=== PATIENT | female | born 1990 | race Hispanic/Latino ===

== ENCOUNTER 2018-03-07 11:58 | Emergency (ER) | payer SELFPAY ==
[2018-03-07] MEDS ORDERED: LIDOCAINE JELLY 2%- 5 ML TUBE ONE (13:04)
[2018-03-07] MEDS ORDERED: ONDANSETRON 4 MG/2 ML VIAL ONE (13:20)
[2018-03-07] MEDS ORDERED: MORPHINE 4 MG/ML SYR ONE (13:20)
[2018-03-07] MEDS ORDERED: NA CHLORIDE 0.9% 1,000 ML ONE (13:20)
[2018-03-07 13:25] LABS: Absolute Lymphocytes (CBC) 2.5 K/uL (0.7-4.9); Absolute Monocytes 0.8 K/uL (0.1-1.3); Absolute Neutrophil 7.6 K/uL (1.8-8.0); Basophils % 0.4 % (0-1.3); Eosinophils % 1.7 % (0-4.4); Hematocrit 36.7 % (36.0-45.0); Lymphocytes % 22.6 % (15.3-44.8); MCH 29.1 pg (27.0-35.0); MCV 87.3 fL (80-100); MPV 8.1 fL (7.6-11.3); Monocytes % 7.3 % (3.3-12.3)
[2018-03-07] MEDS ORDERED: BUPIVACAINE 0.5% PF 10 ML VIAL ONE (13:28)
[2018-03-07 13:32] LABS: Potassium 3.5 mEq/L (3.6-5.0)
[2018-03-07] MEDS ORDERED: LIDOCAINE 1% MPF 2 ML AMPULE ONE (14:12)
--- NOTE | 2018-03-07 14:57 | EDPHYS ---
Physician Documentation [facility] Name: Linsey Lauren Age: 27 yrs Sex: Female : 1990 Arrival Date: 03/07/2018 Time: 12:01 Bed 19 Private MD: None, None ED Physician Inocencio Meehan HPI: 03/07 13:10 This 27 yrs old Female presents to ER via Ambulatory with complaints of cp Abscess. 13:10 The patient presents with an abscess of the left breast, The patient presents with cp cellulitis of the left breast. Description: fluctuant. Onset: The symptoms/episode began/occurred gradually. Associated signs and symptoms: Pertinent negatives: fever. Severity of symptoms: in the emergency department the symptoms are unchanged, despite home interventions. Historical: - Allergies: 12:10 No Known Allergies; ph - PSHx: 12:10 Appendectomy; Cholecystectomy; ph - Immunization history:: Adult Immunizations unknown. - Social history:: Smoking status: Patient uses tobacco products, smokes one-half pack cigarettes per day. - Ebola Screening: : No symptoms or risks identified at this time. ROS: 13:15 Constitutional: Negative for body aches, chills, fever, poor PO intake. cp 13:15 Eyes: Negative for injury, pain, redness, and discharge. cp 13:15 ENT: Negative for drainage from ear(s), ear pain, sore throat, difficulty swallowing, difficulty handling secretions. 13:15 Cardiovascular: Negative for chest pain, palpitations. 13:15 Respiratory: Negative for cough, shortness of breath, wheezing. 13:15 Abdomen/GI: Negative for abdominal pain, nausea, vomiting, and diarrhea. 13:15 Back: Negative for pain at rest, pain with movement. 13:15 : Negative for urinary symptoms. 13:15 Skin: Positive for abscess, cellulitis, of the left breast. 13:15 All other systems are negative. Exam: 13:23 Constitutional: The patient appears in no acute distress, alert, awake, non-toxic, well cp developed, well nourished, uncomfortable. 13:23 Head/Face: Normocephalic, atraumatic. cp 13:23 Eyes: Periorbital structures: appear normal, Conjunctiva: normal, no exudate, no injection, Lids and lashes: appear normal, bilaterally. 13:23 ENT: External ear(s): are unremarkable, Nose: is normal, Mouth: is normal. 13:23 Chest/axilla: Breasts: abscess, that is moderate-sized, of the left breast, cellulitis, that is mild of the left breast, tenderness, that is moderate, of the left breast. 13:23 Cardiovascular: Rate: normal, Rhythm: regular. 13:23 Respiratory: the patient does not display signs of respiratory distress, Respirations: normal, no use of accessory muscles, no retractions, no splinting, no tachypnea, labored breathing, is not present, Breath sounds: are clear throughout, no decreased breath sounds, no stridor, no wheezing. 13:23 Abdomen/GI: Inspection: abdomen appears normal, Palpation: abdomen is soft and non-tender, in all quadrants, rebound tenderness, is not appreciated, voluntary guarding, is not appreciated, involuntary guarding, is not appreciated. 13:23 Back: pain, is absent, ROM is normal. 13:23 Neuro: Orientation: to person, place \T\ time. Mentation: is normal, Cerebellar function: is grossly normal, Motor: moves all fours, strength is normal, Sensation: no obvious gross deficits. Vital Signs: 12:09 BP 112 / 87; Pulse 71; Resp 18; Temp 98.7; Pulse Ox 97% on R/A; Weight 75.3 kg; Height ph 5 ft. 2 in. (157.48 cm); Pain 7/10; 13:00 BP 114 / 78; Pulse 68; Resp 16; Pulse Ox 100% ; hb 14:00 BP 116 / 75; Pulse 70; Resp 15; Pulse Ox 100% ; hb 15:00 BP 122 / 74; Pulse 70; Resp 16; Pulse Ox 100% on R/A; hb 12:09 Body Mass Index 30.36 (75.30 kg, 157.48 cm) ph Procedures: 14:45 I \T\ D: Incision and drainage was performed for an abscess of the left breast Prepped cp with Betadine, Anesthetized with 5ccs of 50/50 mixture 1% lidocaine w/o epi and 0.5% marcaine w/o epi. Incised with #11 blade. Drained moderate amount purulent fluid. Cultures obtained. Abscess cavity explored. Packed with iodoform gauze, Dressing: sterile 4x4 gauze, the patient tolerated the procedure well. MDM: 12:15 Patient medically screened. cp 13:30 Differential diagnosis: abscess, allergic reaction, cellulitis, mastoiditis. cp 14:55 Data reviewed: vital signs, nurses notes, lab test result(s), and as a result, I will cp discharge patient. 14:55 Counseling: I had a detailed discussion with the patient and/or guardian regarding: the cp historical points, exam findings, and any diagnostic results supporting the discharge/admit diagnosis, lab results, the need for outpatient follow up, a general surgeon, to return to the emergency department if symptoms worsen or persist or if there are any questions or concerns that arise at home. Response to treatment: the patient's symptoms have markedly improved after treatment. 03/07 13:03 Order name: CBC with Diff; Complete Time: 13:38 03/07 13:38 Interpretation: Normal except: WBC 11.1. 03/07 13:03 Order name: BMP; Complete Time: 13:38 03/07 13:40 Interpretation: Normal except: K 3.5; GFR 89. 03/07 13:03 Order name: Wound Culture 03/07 15:12 Order name: Urine Dipstick--Ancillary (enter results) 03/07 15:12 Order name: Urine --Ancillary (enter results) 03/07 13:03 Order name: IV; Complete Time: 13:29 03/07 13:03 Order name: I\T\D Setup; Complete Time: 13:29 03/07 13:03 Order name: Urine Dipstick-Ancillary (obtain specimen); Complete Time: 15:11 03/07 13:03 Order name: Urine Test (obtain specimen); Complete Time: 15:11 cp Administered Medications: 13:08 Drug: Lidocaine Gel 2 % 1 application Route: Mucous Membrane; hb 13:20 Drug: NS 0.9% 1000 ml Route: IV; Rate: 1 bolus; Site: right antecubital; hb 14:30 Follow up: Response: No change in condition; IV Status: Completed infusion hb 13:29 Drug: Zofran 4 mg Route: IVP; Site: right antecubital; hb 14:00 Follow up: Response: No adverse reaction; Nausea is decreased hb 13:29 Drug: morphine 2 mg Route: IVP; Site: right antecubital; hb 14:00 Follow up: Response: No adverse reaction; Pain is decreased hb 15:00 Drug: Clindamycin 600 mg Route: IVPB; Infused Over: 30 mins; Site: right antecubital; hb 15:31 Follow up: Response: No adverse reaction; IV Status: Completed infusion hb 15:00 Drug: Bactrim (160 mg-800 mg (DS) 1 tablet Route: PO; hb 15:31 Follow up: Response: No adverse reaction hb Disposition: 03/07/18 14:56 Discharged to Home. Impression: Left Breast Abscess and Cellulitis. - Condition is Stable. - Discharge Instructions: Abscess, Cellulitis. - Prescriptions for Clindamycin HCl 300 mg Oral Capsule - take 1 capsule by ORAL route every 6 hours for 10 days; 40 capsule. Bactrim DS 800- 160 mg Oral Tablet - take 1 tablet by ORAL route every 12 hours for 10 days; 20 tablet. Tylenol- Codeine #3 300-30 mg Oral Tablet - take 2 tablets by ORAL route every 6 hours As needed; 15 tablet. - Medication Reconciliation Form, Thank You Letter, Antibiotic Education, Prescription Opioid Use form. - Follow up: Manny Godinez MD; When: 1 - 2 days; Reason: Wound Recheck. - Problem is new. - Symptoms have improved. Addendum: 03/25/2018 10:55 Co-signature as Attending Physician, Inocencio Meehan MD. g s Signatures: Dispatcher [employer] [facility] Pepper Medina RN RN ph Page, Corey, PA PA Jayne Diego RN RN hb Starr, Gregory, MD MD Corrections: (The following items were deleted from the chart) 03/07 15:49 14:56 03/07/2018 14:56 Discharged to Home. Impression: Left Breast Abscess and hb Cellulitis. Condition is Stable. Forms are Medication Reconciliation Form, Thank You Letter, Antibiotic Education, Prescription Opioid Use. Follow up: Manny Godinez; When: 1 - 2 days; Reason: Wound Recheck. Problem is new. Symptoms have improved. cp
--- NOTE | 2018-03-07 14:57 | ER ---
Nurse's Notes [facility] Name: Linsey Lauren Age: 27 yrs Sex: Female : 1990 Arrival Date: 03/07/2018 Time: 12:01 Bed 19 Private MD: None, None Diagnosis: Left Breast Abscess and Cellulitis Presentation: 03/07 12:07 Presenting complaint: Patient states: " I think I have an abscess on my L breast right ph under my nipple. I tried to drain it but nothing came out." Pt reports pain in L breast, also reports N/V/D x 1 day, denies fever. Transition of care: patient was not received from another setting of care. Onset of symptoms was March 07, 2018. Risk Assessment: Do you want to hurt yourself or someone else? Patient reports no desire to harm self or others. Initial Sepsis Screen: Does the patient meet any 2 criteria? No. Patient's initial sepsis screen is negative. Does the patient have a suspected source of infection? Yes:. Care prior to arrival: None. 12:07 Method Of Arrival: Ambulatory ph 12:07 Acuity: HANH 4 ph Historical: - Allergies: 12:10 No Known Allergies; ph - PSHx: 12:10 Appendectomy; Cholecystectomy; ph - Immunization history:: Adult Immunizations unknown. - Social history:: Smoking status: Patient uses tobacco products, smokes one-half pack cigarettes per day. - Ebola Screening: : No symptoms or risks identified at this time. Screenin:30 Abuse screen: Denies threats or abuse. Denies injuries from another. Nutritional hb screening: No deficits noted. Tuberculosis screening: No symptoms or risk factors identified. Fall Risk None identified. Assessment: 12:30 General: Appears in no apparent distress. uncomfortable, Behavior is calm, cooperative. hb Pain: Pain currently is 9 out of 10 on a pain scale. Neuro: Level of Consciousness is awake, alert, obeys commands, Oriented to person, place, time, situation. Cardiovascular: Capillary refill < 3 seconds Patient's skin is warm and dry. Respiratory: Airway is patent Trachea midline Respiratory effort is even, unlabored, Respiratory pattern is regular, symmetrical, Breath sounds are clear bilaterally. GI: No signs and/or symptoms were reported involving the gastrointestinal system. : No signs and/or symptoms were reported regarding the genitourinary system. EENT: No signs and/or symptoms were reported regarding the EENT system. Derm: Skin is intact, is healthy with good turgor, Wound noted left nipple. Musculoskeletal: No signs and/or symptoms reported regarding the musculoskeletal system. 13:30 Reassessment: Patient appears in no apparent distress at this time. No changes from hb previously documented assessment. Patient and/or family updated on plan of care and expected duration. Pain level reassessed. Patient is alert, oriented x 3, equal unlabored respirations, skin warm/dry/pink. 14:30 Reassessment: Patient appears in no apparent distress at this time. No changes from hb previously documented assessment. Patient and/or family updated on plan of care and expected duration. Pain level reassessed. Patient is alert, oriented x 3, equal unlabored respirations, skin warm/dry/pink. 15:30 Reassessment: Patient appears in no apparent distress at this time. No changes from hb previously documented assessment. Patient and/or family updated on plan of care and expected duration. Pain level reassessed. Patient is alert, oriented x 3, equal unlabored respirations, skin warm/dry/pink. Vital Signs: 12:09 BP 112 / 87; Pulse 71; Resp 18; Temp 98.7; Pulse Ox 97% on R/A; Weight 75.3 kg; Height ph 5 ft. 2 in. (157.48 cm); Pain 7/10; 13:00 BP 114 / 78; Pulse 68; Resp 16; Pulse Ox 100% ; hb 14:00 BP 116 / 75; Pulse 70; Resp 15; Pulse Ox 100% ; hb 15:00 BP 122 / 74; Pulse 70; Resp 16; Pulse Ox 100% on R/A; hb 12:09 Body Mass Index 30.36 (75.30 kg, 157.48 cm) ph ED Course: 12:01 Patient arrived in ED. mr 12:01 None, None is Private Physician. mr 12:09 Triage completed. ph 12:11 Arm band placed on. ph 12:13 Nahum Dominguez PA is PHCP. cp 12:13 Inocencio Meehan MD is Attending Physician. cp 12:30 Patient has correct armband on for positive identification. Placed in gown. Bed in low hb position. Call light in reach. Side rails up X 1. 13:28 Jayne Alfred, RN is Primary Nurse. hb 14:55 Manny Godinez MD is Referral Physician. cp 15:39 No provider procedures requiring assistance completed. IV discontinued, intact, hb bleeding controlled, No redness/swelling at site. Pressure dressing applied. Administered Medications: 13:08 Drug: Lidocaine Gel 2 % 1 application Route: Mucous Membrane; hb 13:20 Drug: NS 0.9% 1000 ml Route: IV; Rate: 1 bolus; Site: right antecubital; hb 14:30 Follow up: Response: No change in condition; IV Status: Completed infusion hb 13:29 Drug: Zofran 4 mg Route: IVP; Site: right antecubital; hb 14:00 Follow up: Response: No adverse reaction; Nausea is decreased hb 13:29 Drug: morphine 2 mg Route: IVP; Site: right antecubital; hb 14:00 Follow up: Response: No adverse reaction; Pain is decreased hb 15:00 Drug: Clindamycin 600 mg Route: IVPB; Infused Over: 30 mins; Site: right antecubital; hb 15:31 Follow up: Response: No adverse reaction; IV Status: Completed infusion hb 15:00 Drug: Bactrim (160 mg-800 mg (DS) 1 tablet Route: PO; hb 15:31 Follow up: Response: No adverse reaction hb Outcome: 14:56 Discharge ordered by MD. cp 15:39 Discharged to home ambulatory. hb 15:39 Condition: stable 15:39 Discharge instructions given to patient, Instructed on discharge instructions, follow up and referral plans. medication usage, wound care, Demonstrated understanding of instructions, follow-up care, medications, wound care, Prescriptions given X 3. 15:49 Patient left the ED. hb Signatures: Martha Mckeon Pepper Medina, RN RN ph Nahum Dominguez, DOM PA cp Jayne Alfred, RN RN hb
[2018-03-07] MEDS ORDERED: SMZ./TMP. 800/160 MG TABLET ONE (15:03)
[2018-03-07] MEDS ORDERED: CLINDAMYCIN 900MG/D5W 900 MG/50 ML BAG IV ONE (15:03)
[2018-03-07 15:45] LABS: Urine Blood NEGATIVE (NEG); Urine Glucose NEGATIVE (NEG); Urine Protein NEGATIVE (NEG); Urine pH 7.5 (5.0-7.0)
[2018-03-07 15:59] VITALS: TEMP 98.7
[2018-03-07 16:00] VITALS: O2SAT 100
[2018-03-07 16:03] VITALS: BP 122/74
== END 2018-03-07 15:49 | disposition home or self-care (01) ==
LOC: ER 11:58
PROC: 0H9UXZZ (ICD-10-PCS; principal; 2018-03-07)
DX: N61.1 Abscess of the breast and nipple (principal); F17.210 Nicotine dependence, cigarettes, uncomplicated
CPT/HCPCS: 36415; 80048; 81003; 81025; 85025; 87070; 87205; 96361; 96365; 96375; 99283; J2001; J2405; J7030

== ENCOUNTER 2018-11-28 10:06 | Emergency (ER) | payer SELFPAY ==
[2018-11-28 11:04] LABS: Absolute Lymphocytes (CBC) 2.8 K/uL (0.7-4.9); Absolute Monocytes 0.4 K/uL (0.1-1.3); Absolute Neutrophil 4.2 K/uL (1.8-8.0); Basophils % 0.6 % (0-1.3); Eosinophils % 2.2 % (0-4.4); Hematocrit 39.7 % (36.0-45.0); Lymphocytes % 36.3 % (15.3-44.8); MPV 8.1 fL (7.6-11.3); Monocytes % 5.6 % (3.3-12.3); RBC Red Blood Cell Count 4.73 M/uL (3.86-4.86)
[2018-11-28] MEDS ORDERED: ONDANSETRON 4 MG/2 ML VIAL ONE (11:07)
[2018-11-28] MEDS ORDERED: KETOROLAC 30 MG/ML INJ ONE (11:07)
[2018-11-28] MEDS ORDERED: NA CHLORIDE 0.9% 1,000 ML ONE (11:08)
[2018-11-28 11:20] LABS: ALT/SGPT 17 U/L (12-78); AST/SGOT 8 U/L (15-37); Albumin 3.4 g/dL (3.4-5.0); Alkaline Phosphatase 69 U/L (45-117); BUN Blood Urea Nitrogen 14 mg/dL (7-18); Bicarbonate 26 mmol/L (21-32); Bilirubin Direct < 0.1 mg/dL (0-0.2); Bilirubin Total 0.2 mg/dL (0.2-1.0); Glucose Level 90 mg/dL (74-106); Lipase 135 U/L (73-393); Potassium 3.8 mmol/L (3.5-5.1); Protein, Total 7.3 g/dL (6.4-8.2); Sodium Level 138 mmol/L (136-145)
--- NOTE | 2018-11-28 11:58 | RAD REPORT ---
EXAM DESCRIPTION: CT - Abdomen Pelvis W Contrast - 11/28/2018 11:46 am CLINICAL HISTORY: Abdominal pain/generalized abdominal pain COMPARISON: 2016 TECHNIQUE: Computed axial tomography of the abdomen pelvis was obtained. 100 cc Isovue-300 was admin istered intravenously. Oral contrast was not requested which limits evaluation of bowel. All CT scans are performed using dose optimization technique as appropriate and may include automated exposure control or mA/KV adjustment according to patient size. FINDINGS: The liver, spleen, pancreas, adrenal and kidneys appear unremarkable. The gallbladder and appendix have been removed. There is no evidence of diverticulitis. A 25 millimeter right ovarian cyst without significant free fluid IMPRESSION: A 25 millimeter right ovarian cyst without significant free fluid
--- NOTE | 2018-11-28 12:08 | EDPHYS ---
Physician Documentation [facility] Name: Linsey Lauren Age: 28 yrs Sex: Female : 1990 Arrival Date: 11/28/2018 Time: 10:08 Bed 14 Private MD: None, None ED Physician Nahum Slaughter HPI: 11/28 12:06 This 28 yrs old Female presents to ER via Ambulatory with complaints of kb Abdominal Pain, Nausea. 12:06 The patient presents with abdominal pain that is diffuse. Onset: The symptoms/episode kb began/occurred 2 day(s) ago. The symptoms do not radiate. Associated signs and symptoms: Pertinent positives: nausea. The symptoms are described as constant. Modifying factors: The symptoms are alleviated by nothing, the symptoms are aggravated by nothing. Severity of pain: At its worst the pain was moderate in the emergency department the pain is unchanged. The patient has not experienced similar symptoms in the past. The patient has been recently seen by a physician: Natalie D\T\C on 11/02/18. 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 - Social history:: Smoking status: Patient uses tobacco products, denies chronic smoking, but will smoke occasionally. - Ebola Screening: : No symptoms or risks identified at this time. ROS: 12:05 Constitutional: Negative for fever, chills, and weight loss, Cardiovascular: Negative kb for chest pain, palpitations, and edema, Respiratory: Negative for shortness of breath, cough, wheezing, and pleuritic chest pain, Back: Negative for injury and pain, : Negative for injury, bleeding, discharge, and swelling, MS/Extremity: Negative for injury and deformity, Skin: Negative for injury, rash, and discoloration, Neuro: Negative for headache, weakness, numbness, tingling, and seizure. 12:05 Abdomen/GI: Positive for abdominal pain, nausea, Negative for vomiting, diarrhea, constipation, abdominal cramps, abdominal distension, anorexia. Exam: 12:05 Constitutional: This is a well developed, well nourished patient who is awake, alert, kb and in no acute distress. Head/Face: Normocephalic, atraumatic. Chest/axilla: Normal chest wall appearance and motion. Nontender with no deformity. No lesions are appreciated. Cardiovascular: Regular rate and rhythm with a normal S1 and S2. No gallops, murmurs, or rubs. Normal PMI, no JVD. No pulse deficits. Respiratory: Lungs have equal breath sounds bilaterally, clear to auscultation and percussion. No rales, rhonchi or wheezes noted. No increased work of breathing, no retractions or nasal flaring. Abdomen/GI: Soft, non-tender, with normal bowel sounds. No distension or tympany. No guarding or rebound. No evidence of tenderness throughout. Skin: Warm, dry with normal turgor. Normal color with no rashes, no lesions, and no evidence of cellulitis. MS/ Extremity: Pulses equal, no cyanosis. Neurovascular intact. Full, normal range of motion. Neuro: Awake and alert, GCS 15, oriented to person, place, time, and situation. Cranial nerves II-XII grossly intact. Motor strength 5/5 in all extremities. Sensory grossly intact. Cerebellar exam normal. Normal gait. Vital Signs: 10:17 BP 116 / 70; Pulse 65; Resp 18 S; Temp 97.9(TE); Pulse Ox 98% on R/A; Weight 82.55 kg aa5 (R); Height 5 ft. 2 in. (157.48 cm) (R); Pain 6/10; 12:31 BP 114 / 70; Pulse 64; Resp 16; Temp 98.4(O); Pulse Ox 99% on R/A; Pain 3/10; ls4 10:17 Body Mass Index 33.29 (82.55 kg, 157.48 cm) aa5 MDM: 10:18 Patient medically screened. kb 12:05 Data reviewed: vital signs, nurses notes. Data interpreted: Pulse oximetry: on room air kb is 98 %. Interpretation: normal. Counseling: I had a detailed discussion with the patient and/or guardian regarding: the historical points, exam findings, and any diagnostic results supporting the discharge/admit diagnosis, lab results, radiology results, the need for outpatient follow up, an OB/Gyne specialist, to return to the emergency department if symptoms worsen or persist or if there are any questions or concerns that arise at home. 11/28 10:32 Order name: Basic Metabolic Panel; Complete Time: 11:24 kb 11/28 10:32 Order name: CBC with Diff; Complete Time: 11:13 kb 11/28 10:32 Order name: Hepatic Function; Complete Time: 11:24 kb 11/28 10:32 Order name: Lipase; Complete Time: 11:24 kb 11/28 10:32 Order name: Urine Dipstick--Ancillary (enter results) kb 11/28 10:32 Order name: Urine --Ancillary (enter results) kb 11/28 10:32 Order name: IV Saline Lock; Complete Time: 11:07 kb 11/28 10:32 Order name: Labs collected and sent; Complete Time: 11:07 kb 11/28 11:26 Order name: CT Abd/Pelvis - W/Contrast; Complete Time: 12:00 kb Administered Medications: 11:06 Drug: NS 0.9% 1000 ml Route: IV; Rate: 1000 ml; Site: right antecubital; ls4 11:48 Follow up: IV Status: Completed infusion ls4 11:06 Drug: Zofran 4 mg Route: IVP; Site: right antecubital; ls4 11:27 Follow up: Response: No adverse reaction; Marked relief of symptoms ls4 11:06 Drug: TORadol 30 mg Route: IVP; Site: right antecubital; ls4 11:27 Follow up: Response: No adverse reaction; Marked relief of symptoms ls4 Disposition: 11/29 07:14 Co-signature as Attending Physician, Nahum Slaughter MD I agree with the assessment and yaneli plan of care. Disposition: 11/28/18 12:07 Discharged to Home. Impression: Other ovarian cysts. - Condition is Stable. - Discharge Instructions: Ovarian Cyst, [id number]. - Prescriptions for Zofran 4 mg Oral Tablet - take 1 tablet by ORAL route every 6 hours As needed; 20 tablet. Diclofenac Sodium 75 mg Oral Tablet, Delayed Release (E.C.) - take 1 tablet by ORAL route 2 times per day As needed; 30 tablet. - Medication Reconciliation Form, Thank You Letter, Antibiotic Education, Prescription Opioid Use, Work release form form. - Follow up: Emergency Department; When: As needed; Reason: Worsening of condition. Follow up: Private Physician; When: 2 - 3 days; Reason: Recheck today's complaints, Continuance of care, Re-evaluation by your physician. Signatures: Dispatcher [employer] Myah Rios, DAPHNE-Radha SERNA-Nahum Santiago MD MD cha Calderon, Audri, RN RN aa5 Carmen Dugan RN RN ls4 Corrections: (The following items were deleted from the chart) 11/28 12:33 12:07 11/28/2018 12:07 Discharged to Home. Impression: Other ovarian cysts. Condition ls4 is Stable. Forms are Medication Reconciliation Form, Thank You Letter, Antibiotic Education, Prescription Opioid Use. Follow up: Emergency Department; When: As needed; Reason: Worsening of condition. Follow up: Private Physician; When: 2 - 3 days; Reason: Recheck today's complaints, Continuance of care, Re-evaluation by your physician. kb
--- NOTE | 2018-11-28 12:08 | ER ---
Nurse's Notes [facility] Name: Linsey Lauren Age: 28 yrs Sex: Female : 1990 Arrival Date: 11/28/2018 Time: 10:08 Bed 14 Private MD: None, None Diagnosis: Other ovarian cysts Presentation: 11/28 10:16 Presenting complaint: Patient states: generalized abd pain that began 2 days ago. Pt aa5 also reports nausea. Pt states "I had an on November 02". Transition of care: patient was not received from another setting of care. Onset of symptoms was November 2018. Risk Assessment: Do you want to hurt yourself or someone else? Patient reports no desire to harm self or others. Initial Sepsis Screen: Does the patient meet any 2 criteria? No. Patient's initial sepsis screen is negative. Does the patient have a suspected source of infection? No. Patient's initial sepsis screen is negative. Care prior to arrival: None. 10:16 Method Of Arrival: Ambulatory aa5 10:16 Acuity: HANH 3 aa5 Triage Assessment: 10:25 General: Appears in no apparent distress. Behavior is calm, cooperative. Pain: ls4 Complains of pain in suprapubic area Pain currently is 7 out of 10 on a pain scale. 10:25 GI: Abdomen is round non-distended, Bowel sounds present X 4 quads. Reports lower ls4 abdominal pain. Musculoskeletal: No deficits noted. 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 - Social history:: Smoking status: Patient uses tobacco products, denies chronic smoking, but will smoke occasionally. - Ebola Screening: : No symptoms or risks identified at this time. Screenin:24 Abuse screen: Denies threats or abuse. Denies injuries from another. Nutritional ls4 screening: No deficits noted. Tuberculosis screening: No symptoms or risk factors identified. Fall Risk None identified. Assessment: 11:45 GI: Abdomen is round non-distended, Bowel sounds present X 4 quads. Abd is soft and non ls4 tender X 4 quads. Vital Signs: 10:17 BP 116 / 70; Pulse 65; Resp 18 S; Temp 97.9(TE); Pulse Ox 98% on R/A; Weight 82.55 kg aa5 (R); Height 5 ft. 2 in. (157.48 cm) (R); Pain 6/10; 12:31 BP 114 / 70; Pulse 64; Resp 16; Temp 98.4(O); Pulse Ox 99% on R/A; Pain 3/10; ls4 10:17 Body Mass Index 33.29 (82.55 kg, 157.48 cm) aa5 ED Course: 10:08 Patient arrived in ED. mr 10:08 None, None is Private Physician. mr 10:16 Triage completed. aa5 10:16 Arm band placed on. aa5 10:17 Myah Ellsworth, ANALILIA is PHCP. kb 10:17 Nahum Slaughter MD is Attending Physician. kb 10:20 Patient has correct armband on for positive identification. Bed in low position. Call ls4 light in reach. Side rails up X 1. 10:23 Carmen Dugan, RN is Primary Nurse. ls4 10:30 No provider procedures requiring assistance completed. Inserted saline lock: 20 gauge ls4 in right antecubital area, using aseptic technique. 10:30 Initial lab(s) drawn, by me, sent to lab. ls4 11:46 CT Abd/Pelvis - W/Contrast In Process Unspecified. EDMS 12:33 IV discontinued, intact, bleeding controlled, No redness/swelling at site. Pressure ls4 dressing applied. Administered Medications: 11:06 Drug: NS 0.9% 1000 ml Route: IV; Rate: 1000 ml; Site: right antecubital; ls4 11:48 Follow up: IV Status: Completed infusion ls4 11:06 Drug: Zofran 4 mg Route: IVP; Site: right antecubital; ls4 11:27 Follow up: Response: No adverse reaction; Marked relief of symptoms ls4 11:06 Drug: TORadol 30 mg Route: IVP; Site: right antecubital; ls4 11:27 Follow up: Response: No adverse reaction; Marked relief of symptoms ls4 Outcome: 12:07 Discharge ordered by . kb 12:32 Discharged to home ambulatory. ls4 12:32 Condition: stable 12:32 Discharge instructions given to patient, family, Instructed on discharge instructions, follow up and referral plans. safety practices, Demonstrated understanding of instructions, follow-up care, medications, Prescriptions given X 2. 12:33 Patient left the ED. ls4 Signatures: Dispatcher [employer] EDMS Myah Ellsworth, PRAKASHC DONOR RELATIONS OFFICER-Stacy Cartwright mr Loera, Rina, RN RN aa5 Carmen Dugan RN RN ls4
[2018-11-28 12:45] VITALS: BP 114/70; TEMP 98.4; O2SAT 99
[2018-11-28 14:20] LABS: Urine Blood TRACE (NEG); Urine Glucose NEGATIVE (NEG); Urine Protein NEGATIVE (NEG); Urine pH 5.5 (5.0-7.0)
== END 2018-11-28 12:33 | disposition home or self-care (01) ==
LOC: ER 10:06
DX: N83.291 Other ovarian cyst, right side (principal); R11.0 Nausea; M79.7 Fibromyalgia
CPT/HCPCS: 36415; 74177; 80048; 80076; 81003; 81025; 83690; 85025; J2405; J7030; Q9967

== ENCOUNTER 2019-03-20 21:33 | Emergency (ER) | payer BC, SELFPAY ==
[2019-03-20] MEDS ORDERED: MORPHINE 4 MG/ML SYR ONE (22:52)
[2019-03-20] MEDS ORDERED: MAGNE/ALUM HYDROXD 30 ML UCUP ONE (22:52)
[2019-03-20] MEDS ORDERED: ONDANSETRON 4 MG/2 ML VIAL ONE (22:52)
[2019-03-20] MEDS ORDERED: NA CHLORIDE 0.9% 1,000 ML ONE (22:53)
[2019-03-20] MEDS ORDERED: FAMOTIDINE 20 MG/2 ML VIAL IV ONE (22:53)
[2019-03-20] MEDS ORDERED: LIDOCAINE VISCOUS 2% SOLN 15 ML UDC ONE (22:53)
[2019-03-20 22:56] LABS: Urine Blood TRACE (NEG); Urine Glucose NEGATIVE (NEG); Urine Protein NEGATIVE (NEG)
[2019-03-20 23:00] LABS: Absolute Lymphocytes (CBC) 3.2 K/uL (0.7-4.9); Absolute Monocytes 0.8 K/uL (0.1-1.3); Absolute Neutrophil 5.5 K/uL (1.8-8.0); Basophils % 0.9 % (0-1.3); Eosinophils % 2.3 % (0-4.4); Hematocrit 33.6 % (36.0-45.0); Lymphocytes % 32.6 % (15.3-44.8); MPV 8.2 fL (7.6-11.3); Monocytes % 7.7 % (3.3-12.3); RBC Red Blood Cell Count 4.03 M/uL (3.86-4.86)
[2019-03-20 23:18] LABS: ALT/SGPT 46 U/L (12-78); AST/SGOT 18 U/L (15-37); Albumin 3.2 g/dL (3.4-5.0); Alkaline Phosphatase 65 U/L (45-117); BUN Blood Urea Nitrogen 9 mg/dL (7-18); Bicarbonate 27 mmol/L (21-32); Bilirubin Direct < 0.1 mg/dL (0-0.2); Bilirubin Total 0.2 mg/dL (0.2-1.0); Glucose Level 121 mg/dL (74-106); Lipase 210 U/L (73-393); Potassium 3.2 mmol/L (3.5-5.1); Protein, Total 6.7 g/dL (6.4-8.2); Sodium Level 140 mmol/L (136-145)
--- NOTE | 2019-03-21 00:16 | ER ---
Nurse's Notes [facility] Name: Linsey Lauren Age: 28 yrs Sex: Female : 1990 Arrival Date: 03/20/2019 Time: 21:41 Bed 13 Private MD: Diagnosis: Pain localized to upper abdomen Presentation: 03/20 21:41 Presenting complaint: Patient states: Left side chest wall pain worse with deep aj breathing. Patient ambulated with steady gait to triage and able to speak in full sentences with no difficulty. Transition of care: patient was not received from another setting of care. Onset of symptoms was March 18, 2019. Risk Assessment: Do you want to hurt yourself or someone else? Patient reports no desire to harm self or others. Initial Sepsis Screen: Does the patient have a suspected source of infection? No. Patient's initial sepsis screen is negative. Care prior to arrival: None. 21:41 Method Of Arrival: Ambulatory aj 21:41 Acuity: HANH 3 aj 21:54 Initial Sepsis Screen: Does the patient meet any 2 criteria? No. Patient's initial ea sepsis screen is negative. Triage Assessment: 21:43 General: Appears in no apparent distress. comfortable, Behavior is calm, cooperative, aj appropriate for age. Pain: Complains of pain in left lateral posterior chest, posterior aspect of left lateral abdomen and anterior aspect of left lateral abdomen. Neuro: Level of Consciousness is awake, alert, obeys commands, Oriented to person, place, time, situation, Appropriate for age. Cardiovascular: Capillary refill < 3 seconds in bilateral fingers Patient's skin is warm and dry. Respiratory: Airway is patent Respiratory effort is even, unlabored, Respiratory pattern is regular, symmetrical. Derm: Skin is intact, is healthy with good turgor, Skin is pink, warm \T\ dry. normal. 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 - Social history:: Smoking status: Patient/guardian denies using tobacco, Patient/guardian denies using alcohol, street drugs, The patient lives with family. - Ebola Screening: : No symptoms or risks identified at this time. - Family history:: not pertinent. Screenin:53 Abuse screen: Denies threats or abuse. Nutritional screening: No deficits noted. ea Tuberculosis screening: No symptoms or risk factors identified. Fall Risk None identified. Assessment: 21:52 General: Appears uncomfortable, Behavior is calm, cooperative, appropriate for age. ea Pain: Complains of pain in anterior aspect of left lateral abdomen and posterior aspect of left lateral abdomen. Neuro: Level of Consciousness is awake, alert, obeys commands, Oriented to person, place, time, situation. Cardiovascular: Patient's skin is warm and dry. Respiratory: Airway is patent Respiratory effort is even, unlabored, Respiratory pattern is regular, symmetrical. GI: Abdomen is non-distended. Derm: Skin is pink, warm \T\ dry. Musculoskeletal: Circulation, motion, and sensation intact. 22:50 Reassessment: Patient and/or family updated on plan of care and expected duration. Pain ea level reassessed. Patient is alert, oriented x 3, equal unlabored respirations, skin warm/dry/pink. 23:10 Reassessment: Patient and/or family updated on plan of care and expected duration. Pain ea level reassessed. Patient is alert, oriented x 3, equal unlabored respirations, skin warm/dry/pink. 03/21 00:28 Reassessment: Patient and/or family updated on plan of care and expected duration. Pain ea level reassessed. Patient is alert, oriented x 3, equal unlabored respirations, skin warm/dry/pink. Discharge instruction given to patient, verbalized the understanding of instruction. Pt left ED ambulatory accompanied by father. Pt tolerating well. Vital Signs: 03/20 21:43 BP 121 / 71; Pulse 81; Resp 19; Temp 97.9; Pulse Ox 98% on R/A; Weight 87.09 kg; Height aj 5 ft. 2 in. (157.48 cm); 22:22 BP 108 / 67; Pulse 73; Resp 18; Pulse Ox 100% ; ea 23:15 BP 122 / 86; Pulse 80; Resp 18; Pulse Ox 99% ; ea 03/21 00:15 BP 118 / 67; Pulse 77; Resp 18; Temp 98; Pulse Ox 99% ; ea 03/20 21:43 Body Mass Index 35.12 (87.09 kg, 157.48 cm) aj ED Course: 03/20 21:41 Patient arrived in ED. aj 21:43 Triage completed. aj 21:43 Arm band placed on left wrist. Patient placed in an exam room. aj 21:48 Talya Roblero, RN is Primary Nurse. ea 21:54 Patient has correct armband on for positive identification. Bed in low position. Call ea light in reach. Side rails up X 1. 22:16 Larry Gibbs MD is Attending Physician. ma2 22:40 Inserted saline lock: 20 gauge in right antecubital area, using aseptic technique. ea Blood collected. 22:53 CT completed. Patient tolerated procedure well. Patient moved to CT via wheelchair. nj Patient moved back from CT. 23:[address] In Process Unspecified. EDMS 03/21 00:27 No provider procedures requiring assistance completed. IV discontinued, intact, ea bleeding controlled, No redness/swelling at site. Pressure dressing applied. Administered Medications: 03/20 22:40 Drug: Pepcid 20 mg Route: IVP; Site: right antecubital; ea 03/21 00:00 Follow up: Response: No adverse reaction ea 03/20 22:45 Drug: Zofran 4 mg Route: IVP; Site: right antecubital; ea 03/21 00:00 Follow up: Response: No adverse reaction ea 00:00 Follow up: Response: No adverse reaction; Marked relief of symptoms ea 03/20 22:45 Drug: NS 0.9% 1000 ml Route: IV; Rate: 1 bolus; Site: right antecubital; ea 03/21 00:00 Follow up: Response: No adverse reaction; IV Status: Completed infusion; IV Intake: ea 1000ml 03/20 22:47 Drug: morphine 4 mg Route: IVP; Site: right antecubital; ea 03/21 00:00 Follow up: Response: No adverse reaction; Pain is decreased ea 03/20 23:12 Drug: GI Cocktail without - (Maalox Suspension 30 ml, Lidocaine Liquid 2 % 15 ea ml) Route: PO; 03/21 00:00 Follow up: Response: No adverse reaction ea Intake: 00:00 IV: 1000ml; Total: 1000ml. ea Outcome: 00:14 Discharge ordered by . evette 00:27 Discharged to home ambulatory. ea 00:27 Condition: improved 00:27 Discharge instructions given to patient, Instructed on discharge instructions, follow up and referral plans. medication usage, Demonstrated understanding of instructions, follow-up care, medications, Prescriptions given X 3. 00:31 Patient left the ED. celina Signatures: Dispatcher [employer] Julia Rollins RN RN aj Jordan, Nathan nj Antunez, Elena, RN RN ea Alzahri, Mohammad, MD MD ma2
--- NOTE | 2019-03-21 00:17 | EDPHYS ---
Physician Documentation [facility] Name: Linsey Lauren Age: 28 yrs Sex: Female : 1990 Arrival Date: 03/20/2019 Time: 21:41 Bed 13 Private MD: ED Physician Larry Gibbs HPI: 03/20 22:46 This 28 yrs old Female presents to ER via Ambulatory with complaints of Flank ma2 Pain. 22:46 The patient complains of pain in the left mid back. Onset: The symptoms/episode ma2 began/occurred gradually, 2 day(s) ago. Associated signs and symptoms: Pertinent positives: pain radiating to Pertinent negatives: fever, hematuria, nausea. Severity of pain: in the emergency department the pain is unchanged. The patient has experienced similar episodes in the past. 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 - Social history:: Smoking status: Patient/guardian denies using tobacco, Patient/guardian denies using alcohol, street drugs, The patient lives with family. - Ebola Screening: : No symptoms or risks identified at this time. - Family history:: not pertinent. ROS: 22:46 Constitutional: Negative for fever, chills, and weight loss. ma2 22:46 Abdomen/GI: Positive for abdominal pain, Negative for nausea and vomiting, constipation, abdominal distension. 22:46 All other systems are negative. Exam: 22:46 Constitutional: This is a well developed, well nourished patient who is awake, alert, ma2 and in no acute distress. Chest/axilla: Normal chest wall appearance and motion. Nontender with no deformity. No lesions are appreciated. Cardiovascular: Regular rate and rhythm with a normal S1 and S2. No gallops, murmurs, or rubs. Normal PMI, no JVD. No pulse deficits. Respiratory: Lungs have equal breath sounds bilaterally, clear to auscultation and percussion. No rales, rhonchi or wheezes noted. No increased work of breathing, no retractions or nasal flaring. Abdomen/GI: Soft, non-tender, with normal bowel sounds. No distension or tympany. No guarding or rebound. No evidence of tenderness throughout. Skin: Warm, dry with normal turgor. Normal color with no rashes, no lesions, and no evidence of cellulitis. MS/ Extremity: Pulses equal, no cyanosis. Neurovascular intact. Full, normal range of motion. Vital Signs: 21:43 BP 121 / 71; Pulse 81; Resp 19; Temp 97.9; Pulse Ox 98% on R/A; Weight 87.09 kg; Height aj 5 ft. 2 in. (157.48 cm); 22:22 BP 108 / 67; Pulse 73; Resp 18; Pulse Ox 100% ; ea 23:15 BP 122 / 86; Pulse 80; Resp 18; Pulse Ox 99% ; ea 03/21 00:15 BP 118 / 67; Pulse 77; Resp 18; Temp 98; Pulse Ox 99% ; ea 03/20 21:43 Body Mass Index 35.12 (87.09 kg, 157.48 cm) aj MDM: 03/20 22:17 Patient medically screened. ut2 22:46 Differential diagnosis: nephrolithiasis, pyelonephritis, UTI, diverticulitis. [facility] 03/21 00:13 Data reviewed: vital signs, nurses notes, EMS record, lab test result(s), radiologic ma2 studies. Counseling: I had a detailed discussion with the patient and/or guardian regarding: the historical points, exam findings, and any diagnostic results supporting the discharge/admit diagnosis, the presence of at least one elevated blood pressure reading (>120/80) during this emergency department visit, lab results, the need for outpatient follow up. Response to treatment: the patient's symptoms have resolved after treatment. 03/20 22:24 Order name: Urine Dipstick--Ancillary (enter results); Complete Time: 23:40 [facility] 03/20 22:24 Order name: Urine --Ancillary (enter results); Complete Time: 23:40 [facility] 03/20 22:33 Order name: Basic Metabolic Panel [facility] 03/20 22:33 Order name: CBC with Diff [facility] 03/20 22:33 Order name: Creatinine for Radiology ut2 03/20 22:33 Order name: Hepatic Function; Complete Time: 23:40 [facility] 03/20 22:33 Order name: Stone Protocol CT [facility] 03/20 22:33 Order name: Lipase; Complete Time: 23:40 [facility] 03/20 22:36 Order name: Basic Metabolic Panel; Complete Time: 23:40 EDMS 06 22:36 Order name: CBC with Automated Diff; Complete Time: 23:40 EDMS 03/20 22:36 Order name: Creatinine (Radiology Only); Complete Time: 23:40 EDMS 03/20 22:05 Order name: Urine Dipstick-Ancillary (obtain specimen); Complete Time: 22:18 ea 03/20 22:33 Order name: IV Saline Lock; Complete Time: 23:10 ma2 03/20 22:33 Order name: Labs collected and sent; Complete Time: 23:10 ma2 Administered Medications: 03/20 22:40 Drug: Pepcid 20 mg Route: IVP; Site: right antecubital; 03/21 00:00 Follow up: Response: No adverse reaction 03/20 22:45 Drug: Zofran 4 mg Route: IVP; Site: right antecubital; ea 03/21 00:00 Follow up: Response: No adverse reaction 00:00 Follow up: Response: No adverse reaction; Marked relief of symptoms 03/20 22:45 Drug: NS 0.9% 1000 ml Route: IV; Rate: 1 bolus; Site: right antecubital; ea 03/21 00:00 Follow up: Response: No adverse reaction; IV Status: Completed infusion; IV Intake: ea 1000ml 03/20 22:47 Drug: morphine 4 mg Route: IVP; Site: right antecubital; ea 03/21 00:00 Follow up: Response: No adverse reaction; Pain is decreased 03/20 23:12 Drug: GI Cocktail without - (Maalox Suspension 30 ml, Lidocaine Liquid 2 % 15 ea ml) Route: PO; 03/21 00:00 Follow up: Response: No adverse reaction Disposition: 03/21/19 00:14 Discharged to Home. Impression: Pain localized to upper abdomen. - Condition is Stable. - Discharge Instructions: Abdominal Pain, Adult. - Prescriptions for Tylenol- Codeine #3 300-30 mg Oral Tablet - take 2 tablet by ORAL route every 6 hours As needed; 30 tablet. Zofran 4 mg Oral Tablet - take 1 tablet by ORAL route every 12 hours As needed; 20 tablet. Pepcid 20 mg Oral Tablet - take 1 tablet by ORAL route once daily for 10 days; 10 tablet. - Work release form, Medication Reconciliation Form, Thank You Letter, Antibiotic Education, Prescription Opioid Use form. - Follow up: Private Physician; When: Tomorrow; Reason: If symptoms return. Signatures: Dispatcher [employer] Julia Rollins, RN Talya Rios RN Larry Lara ea, MD MD ma2 Corrections: (The following items were deleted from the chart) 00:31 00:14 03/21/2019 00:14 Discharged to Home. Impression: Pain localized to upper abdomen. ea Condition is Stable. Forms are Medication Reconciliation Form, Thank You Letter, Antibiotic Education, Prescription Opioid Use. Follow up: Private Physician; When: Tomorrow; Reason: If symptoms return. ma2
[2019-03-21 06:54] VITALS: O2SAT 99
[2019-03-21 06:55] VITALS: BP 118/67; TEMP 98
--- NOTE | 2019-03-21 11:35 | RAD REPORT ---
EXAM DESCRIPTION: CT - Stone Protocol - 03/21/2019 1:14 am CLINICAL HISTORY: 28 years Female ABD PAIN. Prior appendectomy, cholecystectomy. TECHNIQUE: Contiguous axial images obtained through the abdomen and pelvis without IV contrast. Co lorena and sagittal reformatted images provided. This CT exam was performed according to our departmental dose-optimization program, which includes on e or more of the following dose reduction techniques: automated exposure control, adjustment of the m A and/or kV according to patient size, and/or use of iterative reconstruction technique. COMPARISON: Comparison is made to the prior examination dated 11/28/2018. FINDINGS: There is slight right pelvic fullness with a 1 mm calculus at the right ureteropelvic junc tion on series 201 image 66, coronal image 58. No other renal, ureteral, or bladder calculi on either side. Normal left kidney and urinary bladder. There is no bowel inflammation, obstruction, free intraperitoneal air, or ascites. Prior appendectomy Stable chronic consolidation and bronchiectasis in the right middle lobe. Prior cholecystectomy without biliary dilatation. The unenhanced liver, pancreas, spleen, bilateral adrenal glands, uterus, and bilateral ovaries are n ormal. Previously seen right ovarian cyst has resolved. No acute osseous abnormality. IMPRESSION: Slight right pelvic fullness with a 1 mm calculus at the right ureteropelvic junction. No other acute findings in the abdomen or pelvis. Stable chronic consolidation and bronchiectasis in the right middle lobe. Electronically signed by: Jodi Vega MD 03/20/2019 11:19 PM CDT Due to temporary technical issues with the PACS/Fluency reporting system, reports are being signed by the in house radiologist as a courtesy to ensure prompt reporting. The interpreting radiologist is f ully responsible for the content of the report.
== END 2019-03-21 00:31 | disposition home or self-care (01) ==
LOC: ER 21:33
DX: R10.10 Upper abdominal pain, unspecified (principal)
CPT/HCPCS: 36415; 74176; 76377; 80048; 80076; 81003; 81025; 83690; 85025; 96361; 96374; 96375; 99284; J2405; J7030

== ENCOUNTER 2019-08-15 08:27 | Emergency (ER) | payer BC ==
--- NOTE | 2019-08-15 09:28 | EDPHYS ---
Physician Documentation [facility] Name: Linsey Lauren Age: 29 yrs Sex: Female : 1990 Arrival Date: 08/15/2019 Time: 08:30 Bed 19 Private MD: None, None ED Physician Jeramie Rea HPI: 08/15 09:26 This 29 yrs old Female presents to ER via Ambulatory with complaints of Flu kb Symptoms. 09:26 The patient or guardian reports cough, that is intermittent, described as mild, with no kb sputum, flu symptoms, low-grade fever, myalgias. Onset: The symptoms/episode began/occurred 5 day(s) ago. Severity of symptoms: At their worst the symptoms were mild, moderate, in the emergency department the symptoms are unchanged. Modifying factors: The symptoms are alleviated by nothing, the symptoms are aggravated by nothing. Associated signs and symptoms: Pertinent positives: fever, nausea, rhinorrhea, sore throat. The patient has not experienced similar symptoms in the past. The patient has not recently seen a physician. Pt reports she was on a cruise recently, got home on Aug 11 and has been sick since then. Reports others that she went with have similar symptoms. Denies any insect bites while in the [facility]. . Historical: - Allergies: 08:35 Morphine; ss - Home Meds: 08:35 None [Active]; ss - PMHx: 08:35 Fibromyalgia; ss - PSHx: 08:35 Appendectomy; Cholecystectomy; I\T\D; ss - Immunization history:: Adult Immunizations up to date. - Social history:: Smoking status: Patient/guardian denies using tobacco. - Ebola Screening: : Patient denies exposure to infectious person Patient denies travel to an Ebola-affected area in the 21 days before illness onset. ROS: 09:26 Neck: Negative for injury, pain, and swelling, Cardiovascular: Negative for chest pain, kb palpitations, and edema, Abdomen/GI: Negative for abdominal pain, nausea, vomiting, diarrhea, and constipation, Back: Negative for injury and pain, : Negative for injury, bleeding, discharge, and swelling, MS/Extremity: Negative for injury and deformity, Skin: Negative for injury, rash, and discoloration, Neuro: Negative for headache, weakness, numbness, tingling, and seizure. 09:26 Constitutional: Positive for body aches, chills, fatigue, fever, malaise. 09:26 ENT: Positive for rhinorrhea, sinus congestion, sore throat. 09:26 Respiratory: Positive for cough, Negative for dyspnea on exertion, hemoptysis, orthopnea, pleurisy, shortness of breath, sputum production, wheezing. Exam: 09:26 Constitutional: This is a well developed, well nourished patient who is awake, alert, kb and in no acute distress. Head/Face: Normocephalic, atraumatic. Neck: Trachea midline, no thyromegaly or masses palpated, and no cervical lymphadenopathy. Supple, full range of motion without nuchal rigidity, or vertebral point tenderness. No Meningismus. Chest/axilla: Normal chest wall appearance and motion. Nontender with no deformity. No lesions are appreciated. Cardiovascular: Regular rate and rhythm with a normal S1 and S2. No gallops, murmurs, or rubs. Normal PMI, no JVD. No pulse deficits. Respiratory: Lungs have equal breath sounds bilaterally, clear to auscultation and percussion. No rales, rhonchi or wheezes noted. No increased work of breathing, no retractions or nasal flaring. Abdomen/GI: Soft, non-tender, with normal bowel sounds. No distension or tympany. No guarding or rebound. No evidence of tenderness throughout. Skin: Warm, dry with normal turgor. Normal color with no rashes, no lesions, and no evidence of cellulitis. MS/ Extremity: Pulses equal, no cyanosis. Neurovascular intact. Full, normal range of motion. Neuro: Awake and alert, GCS 15, oriented to person, place, time, and situation. Cranial nerves II-XII grossly intact. Motor strength 5/5 in all extremities. Sensory grossly intact. Cerebellar exam normal. Normal gait. 09:26 ENT: External ear(s): are unremarkable, Ear canal(s): are normal, TM's: are normal, Nose: is normal, Mouth: is normal, Posterior pharynx: Airway: normal, no evidence of obstruction, Tonsils: are normal in appearance, Uvula: normal, midline, erythema, that is moderate. Vital Signs: 08:35 BP 124 / 88; Pulse 89; Resp 16; Temp 98.4(TE); Pulse Ox 98% on R/A; Weight 87.09 kg; ss Height 5 ft. 2 in. (157.48 cm); Pain 8/10; 08:35 Body Mass Index 35.12 (87.09 kg, 157.48 cm) ss MDM: 09:01 Patient medically screened. kb 09:26 Data reviewed: vital signs, nurses notes. Data interpreted: Pulse oximetry: on room air kb is 98 %. Interpretation: normal. Counseling: I had a detailed discussion with the patient and/or guardian regarding: the historical points, exam findings, and any diagnostic results supporting the discharge/admit diagnosis, lab results, the need for outpatient follow up, a family practitioner, to return to the emergency department if symptoms worsen or persist or if there are any questions or concerns that arise at home. 08/15 08:34 Order name: Flu; Complete Time: 09:19 kb 08/15 08:34 Order name: Strep; Complete Time: 09:19 kb 08/15 09:16 Order name: Throat Culture EDMS Administered Medications: No medications were administered Disposition: 08/16 07:14 Co-signature as Attending Physician, Jeramie Rea MD I agree with the assessment and kdr plan of care. Disposition: 08/15/19 09:25 Discharged to Home. Impression: Acute upper respiratory infection, unspecified. - Condition is Stable. - Discharge Instructions: Upper Respiratory Infection, Adult, Twip-el-Grol, Viral Respiratory Infection, [id number]. - Medication Reconciliation Form, Thank You Letter, Antibiotic Education, Prescription Opioid Use form. - Follow up: Emergency Department; When: As needed; Reason: Worsening of condition. Follow up: Private Physician; When: 2 - 3 days; Reason: Recheck today's complaints, Continuance of care, Re-evaluation by your physician. Signatures: Dispatcher [employer] EDMS Myah Ellsworth, Jeramie Escobar MD MD [facility] Ricarda Jansen RN RN ss Jayne Alfred RN RN hb Corrections: (The following items were deleted from the chart) 08/15 09:30 09:25 08/15/2019 09:25 Discharged to Home. Impression: Acute upper respiratory hb infection, unspecified. Condition is Stable. Forms are Medication Reconciliation Form, Thank You Letter, Antibiotic Education, Prescription Opioid Use. Follow up: Emergency Department; When: As needed; Reason: Worsening of condition. Follow up: Private Physician; When: 2 - 3 days; Reason: Recheck today's complaints, Continuance of care, Re-evaluation by your physician. kb
--- NOTE | 2019-08-15 09:28 | ER ---
Nurse's Notes [facility] Name: Linsey Lauren Age: 29 yrs Sex: Female : 1990 Arrival Date: 08/15/2019 Time: 08:30 Bed 19 Private MD: None, None Diagnosis: Acute upper respiratory infection, unspecified Presentation: 08/15 08:32 Presenting complaint: Patient states: Neck stiffness, chills, sore throat, painful ss cough, body aches and bilateral ear pain that began 3 days ago. Transition of care: patient was not received from another setting of care. Onset of symptoms was August 12, 2019. Risk Assessment: Do you want to hurt yourself or someone else? Patient reports no desire to harm self or others. Initial Sepsis Screen: Does the patient meet any 2 criteria? No. Patient's initial sepsis screen is negative. Does the patient have a suspected source of infection? No. Patient's initial sepsis screen is negative. Care prior to arrival: None. 08:32 Method Of Arrival: Ambulatory ss 08:32 Acuity: HANH 4 ss Historical: - Allergies: 08:35 Morphine; ss - Home Meds: 08:35 None [Active]; ss - PMHx: 08:35 Fibromyalgia; ss - PSHx: 08:35 Appendectomy; Cholecystectomy; I\T\D; ss - Immunization history:: Adult Immunizations up to date. - Social history:: Smoking status: Patient/guardian denies using tobacco. - Ebola Screening: : Patient denies exposure to infectious person Patient denies travel to an Ebola-affected area in the 21 days before illness onset. Screenin:09 Abuse screen: Denies threats or abuse. Denies injuries from another. Nutritional hb screening: No deficits noted. Tuberculosis screening: No symptoms or risk factors identified. Fall Risk None identified. Assessment: 09:09 General: Appears in no apparent distress. Behavior is calm, cooperative. Pain: Pain hb currently is 8 out of 10 on a pain scale. Neuro: Level of Consciousness is awake, alert, obeys commands, Oriented to person, place, time, situation. Cardiovascular: Capillary refill < 3 seconds Patient's skin is warm and dry. Respiratory: Airway is patent Respiratory effort is even, unlabored, Respiratory pattern is regular, symmetrical, Breath sounds are clear bilaterally. GI: Reports nausea. : No signs and/or symptoms were reported regarding the genitourinary system. EENT: Reports sore throat, bilateral ear pain. Derm: Skin is pink, warm \T\ dry. Musculoskeletal: Reports pain all over. Vital Signs: 08:35 BP 124 / 88; Pulse 89; Resp 16; Temp 98.4(TE); Pulse Ox 98% on R/A; Weight 87.09 kg; Height 5 ft. 2 in. (157.48 cm); Pain 8/10; 08:35 Body Mass Index 35.12 (87.09 kg, 157.48 cm) ED Course: 08:30 Patient arrived in ED. mr 08:31 None, None is Private Physician. mr 08:33 Triage completed. ss 08:34 Myah Ellsworth FNP-C [facility]. kb 08:34 Jeramie Rea MD is Attending Physician. kb 08:35 Arm band placed on right wrist. ss 09:09 Jayne Alfred, RN is Primary Nurse. hb 09:09 Patient has correct armband on for positive identification. Placed in gown. Bed in low hb position. Call light in reach. Side rails up X 1. 09:30 No provider procedures requiring assistance completed. Patient did not have IV access hb during this emergency room visit. Administered Medications: No medications were administered Outcome: 09:25 Discharge ordered by . kb 09:30 Discharged to home ambulatory. hb 09:30 Condition: stable 09:30 Discharge instructions given to patient, Instructed on discharge instructions, follow up and referral plans. medication usage, Demonstrated understanding of instructions, follow-up care, medications. 09:30 Patient left the ED. hb Signatures: Myah Ellsworth FNP-C FNP-Ckb Stacy MckeonRicarda, RN RN Jayne Alfred, RN RN hb
[2019-08-15 09:35] VITALS: BP 124/88; TEMP 98.4; O2SAT 98
== END 2019-08-15 09:30 | disposition home or self-care (01) ==
LOC: ER 08:27
DX: J06.9 Acute upper respiratory infection, unspecified (principal); Z88.5 Allergy status to narcotic agent
CPT/HCPCS: 87070; 87081; 87804; 99281

== ENCOUNTER 2020-03-07 17:13 | Emergency (ER) | payer OTHER ==
[2020-03-07] MEDS ORDERED: METHYLPREDNISOLONE 125 MG INJ ONE (18:41)
[2020-03-07] MEDS ORDERED: KETOROLAC 30 MG/ML INJ ONE (18:41)
[2020-03-07 18:58] LABS: Urine Blood 1+ (NEG); Urine Glucose NEGATIVE (NEG); Urine Protein NEGATIVE (NEG); Urine Specific Gravity >1.030 (1.005-1.030)
--- NOTE | 2020-03-07 19:08 | RAD REPORT ---
EXAM DESCRIPTION: CT - Soft Tissue Neck W/Contr - 03/07/2020 6:58 pm CLINICAL HISTORY: neck pain - Left COMPARISON: SOFT TISSUE NECK W CONTRAST dated 08/16/2013 TECHNIQUE: During dynamic enhancement using 100 milliliters nonionic IV contrast, axial 5 millimeter thick images of the neck were obtained. All CT scans are performed using dose optimization technique as appropriate and may include automated exposure control or mA/KV adjustment according to patient size. FINDINGS: Intracranial portion the examination is unremarkable. No globe or orbital content abnormal ity. Mastoid air cells are underpneumatized. No acute mastoid or middle ear finding. Extensive paranasal sinus mucosal thickening changes are present. Postsurgical changes are present in each medial maxillary sinus wall. No pharyngeal mucosal mass or asymmetry identifiable. Parapharyngeal fat is normal. No tonsil or tong ue base abnormality. Soft palate is normal range. No epiglottis abnormality. Vocal cord and laryngeal structures normal range as well. A few small nonspecific cervical lymph nodes are present. This is a symmetric pattern and similar to the 2013 study. The parotid, submandibular and thyroid gland tissue show no abnormalities. No edema or stranding in t he subcutaneous fatty tissues. No vascular abnormality. No cervical spine acute finding. IMPRESSION: Contrast CT soft tissue neck examination shows no mass, lymphadenopathy or worrisome fin ding. Patient has extensive paranasal sinus disease without air-fluid level. This is probably not related t o clinical presentation.
[2020-03-07 20:38] VITALS: BP 123/94; O2SAT 99
[2020-03-07 20:39] VITALS: TEMP 98
--- NOTE | 2020-03-11 16:15 | ER ---
Nurse's Notes [facility] Name: Linsey Lauren Age: 29 yrs Sex: Female : 1990 Arrival Date: 03/07/2020 Time: 17:16 Bed 23 Private MD: Diagnosis: Pain in arm, unspecified-Pain in neck Presentation: 03/07 17:23 Chief complaint: Patient states: Severe left arm pain awoke today with pain. No known ll1 trauma or injury. Slight left sided neck pain also. Coronavirus screen: Proceed with normal triage. Patient denies a cough. Patient denies shortness of breath or difficulty breathing. Patient denies measured and/or subjective temperature greater than 100.4F prior to today's visit. Patient denies travel on a cruise ship or to a country the [facility] currently lists as an affected area. Patient denies contact with known and/or suspected case of COVID-19. Ebola Screen: Patient denies travel to an Ebola-affected area in the 21 days before illness onset. Initial Sepsis Screen: Does the patient meet any 2 criteria? No. Patient's initial sepsis screen is negative. Does the patient have a suspected source of infection? No. Patient's initial sepsis screen is negative. Risk Assessment: Do you want to hurt yourself or someone else? Patient reports no desire to harm self or others. Onset of symptoms was March 07, 2020. 17:23 Method Of Arrival: Ambulatory ll1 17:23 Acuity: HANH 3 ll1 17:26 Acuity: HANH 4 ll1 18:41 Acuity: HANH 3 iw CHEF & OWNER: 19:23 LMP N/A - control method ll1 Historical: - Allergies: 17:25 Morphine; ll1 - PMHx: 17:25 Fibromyalgia; ll1 - PSHx: 17:25 Appendectomy; Cholecystectomy; I\T\D; ll1 - Immunization history:: Flu vaccine is not up to date. - Social history:: Smoking status: Patient reports the use of cigarette tobacco products, smokes one pack cigarettes per day. Patient/guardian denies using alcohol, street drugs. Screenin:40 Abuse screen: Denies threats or abuse. Denies injuries from another. Nutritional iw screening: No deficits noted. Tuberculosis screening: No symptoms or risk factors identified. Fall Risk IV access (20 points). Assessment: 17:50 General: Appears in no apparent distress. comfortable, Behavior is calm, cooperative. iw Pain: Complains of pain in left arm. Neuro: Level of Consciousness is awake, alert, obeys commands, Oriented to person, place, time, situation. 18:39 Cardiovascular: Patient's skin is warm and dry. Respiratory: Airway is patent iw Respiratory effort is even, unlabored, Respiratory pattern is regular, symmetrical. Derm: Skin is intact, is healthy with good turgor. Musculoskeletal: Range of motion: limited in left shoulder. 19:03 Reassessment: Patient appears in no apparent distress at this time. Patient and/or iw family updated on plan of care and expected duration. Pain level reassessed. Patient is alert, oriented x 3, equal unlabored respirations, skin warm/dry/pink. Vital Signs: 17:23 BP 116 / 68; Pulse 74; Resp 17; Temp 98.0; Pulse Ox 99% ; Pain 8/10; ll1 19:55 BP 123 / 94; Pulse 80; Resp 16; Pulse Ox 99% ; Pain 0/10; ll1 ED Course: 17:16 Patient arrived in ED. bp1 17:25 Triage completed. ll1 17:26 Arm band placed on Patient placed in an exam room, on a stretcher. ll1 17:27 Marbella Espinoza, REID is Primary Nurse. iw 17:32 Jeramie Rea MD is Attending Physician. kdr 18:35 Inserted saline lock: 20 gauge in right antecubital area, using aseptic technique. iw 18:38 Urine collected: clean catch specimen, clear. mb4 18:58 CT Soft Tissue Neck W/contr In Process Unspecified. EDMS 19:16 Attending Physician role handed off by Jeramie Rea MD mh7 19:16 Brendan Stuart MD is Attending Physician. mh7 19:23 Patient has correct armband on for positive identification. Placed in gown. Bed in low ll1 position. Call light in reach. Side rails up X 1. 19:56 No provider procedures requiring assistance completed. IV discontinued, intact, ll1 bleeding controlled, No redness/swelling at site. Pressure dressing applied. Administered Medications: 18:37 Drug: TORadol - Ketorolac 15 mg Route: IVP; Site: right antecubital; iw 19:22 Follow up: Response: No adverse reaction; Pain is decreased; RASS: Alert and Calm (0) 1 18:38 Drug: SOLU-Medrol 125 mg Route: IVP; Site: right antecubital; iw 19:23 Follow up: Response: No adverse reaction; Pain is decreased; RASS: Alert and Calm (0) 1 Outcome: 19:41 Discharge ordered by . mare 19:57 Discharged to home ambulatory. 1 19:57 Condition: stable 19:57 Discharge instructions given to patient, Instructed on discharge instructions, follow up and referral plans. no drinking with medication, medication usage, Demonstrated understanding of instructions, follow-up care, medications, Prescriptions given X 2. 19:58 Patient left the ED. 1 Signatures: Dispatcher [employer] EDMS Jeramie Rea MD MD kdr Williams, Irene, RN RN Caroline Alfred Lynsay, RN RN 1 Veronica Cifuentes Maurice, MD MD [facility]
--- NOTE | 2020-03-11 16:16 | EDPHYS ---
Physician Documentation [facility] Name: Linsey Lauren Age: 29 yrs Sex: Female : 1990 Arrival Date: 03/07/2020 Time: 17:16 Bed 23 Private MD: ED Physician Brendan Stuart HPI: 03/07 18:17 This 29 yrs old Female presents to ER via Ambulatory with complaints of neck kdr and Arm Pain. 18:17 The patient or guardian complains of pain, that is acute. The complaints affect the. kdr 18:18 The patient awoke at about 5:30 AM today with pain to the left neck and arm. Over the kdr weekend, she was sitting in a chair and had a brief episode of pain to her left neck but it resolved after a short period. She has not had this problem before otherwise. Onset: The symptoms/episode began/occurred suddenly, this morning. Severity of symptoms: At their worst the symptoms were mild moderate just prior to arrival, in the emergency department the symptoms are unchanged. The patient has not experienced similar symptoms in the past. The patient has not recently seen a physician. 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 - Social history:: Smoking status: Patient reports the use of cigarette tobacco products, smokes one pack cigarettes per day. Patient/guardian denies using alcohol, street drugs. ROS: 18:18 Constitutional: Negative for fever, chills, and weight loss, Eyes: Negative for injury, kdr pain, redness, and discharge, ENT: Negative for injury, pain, and discharge, Cardiovascular: Negative for chest pain, palpitations, and edema, Respiratory: Negative for shortness of breath, cough, wheezing, and pleuritic chest pain, Abdomen/GI: Negative for abdominal pain, nausea, vomiting, diarrhea, and constipation, Back: Negative for injury and pain, : Negative for injury, bleeding, discharge, and swelling, Skin: Negative for injury, rash, and discoloration, Neuro: Negative for headache, weakness, numbness, tingling, and seizure activity. Psych: Negative for depression, anxiety, suicide ideation, homicidal ideation, and hallucinations, Allergy/Immunology: Negative for hives, rash, and allergies, Endocrine: Negative for neck swelling, polydipsia, polyuria, polyphagia, and marked weight changes, Hematologic/Lymphatic: Negative for swollen nodes, abnormal bleeding, and unusual bruising. 18:18 Neck: Positive for pain with movement, pain at rest, tenderness, of the face, scalp and left side of neck. Exam: 18:18 Constitutional: This is a well developed, well nourished patient who is awake, alert, kdr and in no acute distress. Head/Face: Normocephalic, atraumatic. Eyes: Pupils equal round and reactive to light, extra-ocular motions intact. Lids and lashes normal. Conjunctiva and sclera are non-icteric and not injected. Cornea within normal limits. Periorbital areas with no swelling, redness, or edema. ENT: Nares patent. No nasal discharge, no septal abnormalities noted. Tympanic membranes are normal and external auditory canals are clear. Oropharynx with no redness, swelling, or masses, exudates, or evidence of obstruction, uvula midline. Mucous membranes moist. Chest/axilla: Normal chest wall appearance and motion. Nontender with no deformity. No lesions are appreciated. Cardiovascular: Regular rate and rhythm with a normal S1 and S2. No gallops, murmurs, or rubs. Normal PMI, no JVD. No pulse deficits. Respiratory: Lungs have equal breath sounds bilaterally, clear to auscultation and percussion. No rales, rhonchi or wheezes noted. No increased work of breathing, no retractions or nasal flaring. Abdomen/GI: Soft, non-tender, with normal bowel sounds. No distension or tympany. No guarding or rebound. No evidence of tenderness throughout. Back: No spinal tenderness. No costovertebral tenderness. Full range of motion. Skin: Warm, dry with normal turgor. Normal color with no rashes, no lesions, and no evidence of cellulitis. Neuro: Awake and alert, GCS 15, oriented to person, place, time, and situation. Cranial nerves II-XII grossly intact. Motor strength 5/5 in all extremities. Sensory grossly intact. Cerebellar exam normal. Normal gait. Psych: Awake, alert, with orientation to person, place and time. Behavior, mood, and affect are within normal limits. 18:18 Neck: External neck: tenderness, that is mild, of the left side of neck. 18:18 Musculoskeletal/extremity: Extremities: grossly normal except: noted in the left arm: pain, ROM: no acute changes, intact in all extremities, Circulation is intact in all extremities. Sensation intact. Vital Signs: 17:23 BP 116 / 68; Pulse 74; Resp 17; Temp 98.0; Pulse Ox 99% ; Pain 8/10; ll1 19:55 BP 123 / 94; Pulse 80; Resp 16; Pulse Ox 99% ; Pain 0/10; ll1 MDM: 18:18 Data reviewed: vital signs, nurses notes, lab test result(s), radiologic studies. kdr Counseling: I had a detailed discussion with the patient and/or guardian regarding: the historical points, exam findings, and any diagnostic results supporting the discharge/admit diagnosis, radiology results, the need for outpatient follow up. 19:33 Differential Diagnosis neck pain, arm pain, cervical radiculopathy. Data interpreted: [facility] Pulse oximetry: on room air is 99 %. Interpretation: normal. Counseling: I had a detailed discussion with the patient and/or guardian regarding: to return to the emergency department if symptoms worsen or persist or if there are any questions or concerns that arise at home. ED course: Patient was signed out to me at change of shift to check pending CT neck and reevaluate for disposition. Feels better, NAD, VSS, NVI, no focal neurological deficits. Awake, alert, and oriented x 3. Discussed all test results and findings and answered all of her questions. She will follow up with her doctor in the next 1-2 days but agreed to return to the ED if worsening of symptoms or other concerns.. 19:41 Patient medically screened. [facility] 03/07 18:38 Order name: Urine Dipstick--Ancillary (enter results); Complete Time: 19:24 03/07 18:16 Order name: CT Soft Tissue Neck W/contr; Complete Time: 19:24 kdr 03/07 18:38 Order name: Urine --Ancillary (enter results); Complete Time: 19:24 03/07 19:07 Order name: CREATININE WHOLE BLOOD; Complete Time: 19:24 EDIA 03/07 18:16 Order name: Urine Test (obtain specimen); Complete Time: 18:39 kdr Administered Medications: 18:37 Drug: TORadol - Ketorolac 15 mg Route: IVP; Site: right antecubital; 19:22 Follow up: Response: No adverse reaction; Pain is decreased; RASS: Alert and Calm (0) ll1 18:38 Drug: SOLU-Medrol 125 mg Route: IVP; Site: right antecubital; iw 19:23 Follow up: Response: No adverse reaction; Pain is decreased; RASS: Alert and Calm (0) ll1 Disposition: 03/07/20 19:41 Discharged to Home. Impression: Pain in arm, unspecified - Pain in neck. - Condition is Stable. - Discharge Instructions: Musculoskeletal Pain. - Prescriptions for ketorolac 10 mg Oral tablet - take 1 tablet by ORAL route every 8 hours As needed not to exceed 40 mg in 24hrs; 15 tablet. Robaxin 500 mg Oral Tablet - take 2 tablets by ORAL route every 6 hours As needed; 30 tablet. - Medication Reconciliation Form, Thank You Letter, Antibiotic Education, Prescription Opioid Use form. - Follow up: Private Physician; When: 1 - 2 days; Reason: Worsening of condition, Re-evaluation by your physician. - Problem is new. - Symptoms have improved. Signatures: Dispatcher [employer] [facility] Jeramie Rea MD MD kdr Marbella Espinoza RN RN Henny Darling RN RN ll1 Brendan Stuart MD MD 7 Corrections: (The following items were deleted from the chart) 18:19 18:18 CREATININE, SERUM+C.LAB.BRZ ordered. [facility] 19:58 19:41 03/07/2020 19:41 Discharged to Home. Impression: Pain in arm, unspecified - Pain ll1 in neck. Condition is Stable. Forms are Medication Reconciliation Form, Thank You Letter, Antibiotic Education, Prescription Opioid Use. Follow up: Private Physician; When: 1 - 2 days; Reason: Worsening of condition, Re-evaluation by your physician. Problem is new. Symptoms have improved. 7
== END 2020-03-07 19:58 | disposition home or self-care (01) ==
LOC: ER 17:13
DX: M54.2 Cervicalgia (principal); Z88.5 Allergy status to narcotic agent
CPT/HCPCS: 81025; 82565; 81003; 70491; 96375; 96374; 99284; Q9967; J2930

== ENCOUNTER 2020-06-15 04:03 | Emergency (ER) | payer SELFPAY ==
--- OUTSIDE RECORDS SUMMARY | 2020-06-15 04:04 | XMS REPORT | Continuity of Care Document ---
:1990 Author Organization [facility] t Address [address] [place] [address] Care Team Providers Name Role Phone Only, Test Attending Clinician Unavailable Problems This patient has no known problems. Allergies, Adverse Reactions, Alerts This patient has no known allergies or adverse reactions. Medications This patient has no known medications. Procedures This patient has no known procedures. Encounters Start End Encounter Admission Attending Care Care Encounter Source Date/Time Date/Time Type Type Clinicians Facility Department ID 2020-04-22 2020-04-22 Laboratory Only, [facility] [id number] 16:11:19 16:26:19 Only Test Health [id number] Specialty [id number] [place] [id number] [place] [address] Results This patient has no known results.
--- OUTSIDE RECORDS SUMMARY | 2020-06-15 04:05 | XMS REPORT | Summary of Care ---
:1990 Author Organization [facility] Address [address] [place] [id number] Care Team Providers Name Role Phone Unavailable Primary Care Provider Unavailable Encounter Details Date Type Department Care Team Description 04/22/2020 Laboratory Only [facility] [address] Extended Unknown, Attendin g Screening for viral Hours and Walk-in Only, Web Test disease (Primary Dx) Clinic, [place] [address], [address] [place] [address] Allergies No Known Allergiesdocumented as of this encounter (statuses as of 04/22/2020) Medications No known medicationsdocumented as of this encounter (statuses as of 04/22/2020) Active Problems Problem Noted Date Breast discharge 09/20/2017 Well woman exam 08/21/2016 Encounter for other general counseling or advice on co ntraception 08/21/2016 Fibroadenoma 01/31/2014 Overview: Medical records from [facility] on 10/25/2013. Mammogram on left breast. Impression. 1.1cm hyyopechoic structure within the upper-o uter left breast most likely representing a fibroadenoma. F/U [facility] in 6 months. Benig n appearing right breast. BIRADS - category II. Probably benign. 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0 weekends Sex Assigned at Date Recorded Not on file Job Start Date Occupation Industry Not on file Not on file Not on file Travel History Travel Start Travel End No recent travel history available. documented as of this encounter Last Filed Vital Signs Not on filedocumented in this encounter Plan of Treatment Name Type Priority Associated Diagnoses Date/Ti me COVID-19 (PCR MOLECULAR LAB Routine Screening for vir al 04/22/2020 4:13 PM CDT TESTING) disease Name Type Priority Associated Diagnoses Order S chedule COVID-19 (PCR MOLECULAR LAB Routine Screening for vir al Expected: 04/22/2020, TESTING) disease Expires: 2020 Health Maintenance Due Date Last Done Comments VARICELLA VACCINES (1 of 2 1991 - 2-dose childhood series) Depression Screening 2002 PAP SMEAR 08/21/2019 08/21/2016, 11/25/2012, 10/15/2009, Additional history exists INFLUENZA VACCINE (#1) 2020 DTaP,Tdap,and Td Vaccines 08/21/2026 08/21/2016, 01/31/2005 (3 - Td) PNEUMOCOCCAL 0-64 YEARS Aged Out No longe r eligible COMBINED SERIES based on patient 's age to complete this topic documented as of this encounter Results Not on filedocumented in this encounter Visit Diagnoses Diagnosis Screening for viral disease - Primary Special screening examination for unspec ified viral disease documented in this encounter Additional Health Concerns Infection Onset Date Last Indicated Resolved Time COVID-19 Rule Out 04/22/2020 04/22/2020 documented as of this encounter Advance Directives Name Relationship Healthcare Agent Relationship Co mmunication Deepti Gonzalez Mother Primary healthcare agent
--- NOTE | 2020-06-15 04:31 | ER ---
Nurse's Notes [facility] Name: Linsey Lauren Age: 30 yrs Sex: Female : 1990 Arrival Date: 06/15/2020 Time: 04:05 Bed 14 Private MD: Diagnosis: Dental caries, unspecified;Chronic pain, not elsewhere classified Presentation: 06/15 04:14 Chief complaint: Patient states: "The right side of my head hurts really bad, it has vc been hurting like this for 2-3 days at a time for the last 3 weeks, I don't know if it is from my tooth or what. Last night I felt nauseous and SOB, but I felt better after I threw up, I took a tylenol 3 last night and all it did was make me sick.". Coronavirus screen: shortness of breath. Ebola Screen: No symptoms or risks identified at this time. Initial Sepsis Screen: Does the patient meet any 2 criteria? No. Patient's initial sepsis screen is negative. Does the patient have a suspected source of infection? No. Patient's initial sepsis screen is negative. Risk Assessment: Do you want to hurt yourself or someone else? Patient reports no desire to harm self or others. Onset of symptoms is unknown. 04:14 Method Of Arrival: Ambulatory vc 04:14 Acuity: HANH 4 vc Triage Assessment: 04:20 Pain: Complains of pain in right religious, right side of the back of head, right temporal vc area and right occipital area Pain does not radiate. Pain currently is 10 out of 10 on a pain scale. Also complains of nausea. 04:23 General: Appears Behavior is agitated, anxious, crying. General: Appears in no apparent vc distress. uncomfortable, obese. 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 - Social history:: Smoking status: Patient reports the use of cigarette tobacco products, 1-2/day. Screenin:20 Abuse screen: Denies threats or abuse. Nutritional screening: No deficits noted. vc Tuberculosis screening: No symptoms or risk factors identified. Fall Risk None identified. Assessment: 04:22 General: Appears in no apparent distress. uncomfortable, Behavior is anxious, crying. vc Pain: Complains of pain in right occipital area and right temporal area and right side of the back of head and right religious. Neuro: Level of Consciousness is awake, alert, obeys commands, Oriented to person, place, time, situation, Appropriate for age. Cardiovascular: No deficits noted. Respiratory: Airway is patent Respiratory effort is even, unlabored, Respiratory pattern is regular, symmetrical. GI: No signs and/or symptoms were reported involving the gastrointestinal system. : No signs and/or symptoms were reported regarding the genitourinary system. Derm: Skin is healthy with good turgor, Skin temperature is warm. Musculoskeletal: Circulation, motion, and sensation intact. Range of motion: intact in all extremities. 04:29 Reassessment: Patient yelling at office assistant receptionist that she does not want any papers and she vc wants her to go away. Vital Signs: 04:14 BP 130 / 99; Pulse 84; Resp 20; Temp 98.1; Pulse Ox 96% on R/A; Weight 88.45 kg; Height vc 5 ft. 2 in. (157.48 cm); Pain 10/10; 04:15 BP 130 / 99; Pulse 84; Temp 98.1; Pulse Ox 96% on R/A; Weight 88.45 kg; Height 5 ft. 2 tt3 in. (157.48 cm); Pain 10/10; 04:15 Body Mass Index 35.67 (88.45 kg, 157.48 cm) tt3 ED Course: 04:05 Patient arrived in ED. am2 04:10 Daylin De La O RN is Primary Nurse. vc 04:11 James Vallejo MD is Attending Physician. tw4 04:18 Triage completed. vc 04:21 Arm band placed on. vc 04:21 Patient has correct armband on for positive identification. Bed in low position. Call vc light in reach. Pulse ox on. NIBP on. 04:30 No provider procedures requiring assistance completed. Patient did not have IV access vc during this emergency room visit. Administered Medications: No medications were administered Outcome: 04:30 Medical screen evaluation completed per provider. Patient declined treatment. vc 04:30 Condition: stable 04:30 Following a medical screening exam, the patient was provided information regarding alternative care sites and resources available per registration personnel. 04:30 Discharge ordered by . tw4 04:32 Patient left the ED. vc Signatures: Julia Gonzalez am2 James Vallejo MD MD tw4 Daylin De La O RN RN Julio C Norman tt3 Corrections: (The following items were deleted from the chart) 04:23 04:20 General: Appears in no apparent distress. uncomfortable, obese, Behavior is calm, vc cooperative, appropriate for age, vc
--- NOTE | 2020-06-15 04:31 | EDPHYS ---
Physician Documentation [facility] Name: Linsey Lauren Age: 30 yrs Sex: Female : 1990 Arrival Date: 06/15/2020 Time: 04:05 Bed 14 Private MD: ED Physician James Vallejo HPI: 06/15 04:32 This 30 yrs old Female presents to ER via Ambulatory with complaints of Facial tw4 pain. 04:32 The patient presents with pain. The problem is located in the right cheek, right ear, tw4 right restoration, right jaw and right zygomatic area. Onset: The symptoms/episode began/occurred 2 week(s) ago. Duration: The symptoms are continuous, and are unchanged since they started. Modifying factors: The symptoms are alleviated by nothing, the symptoms are aggravated by nothing. Associated signs and symptoms: The patient has no apparent associated signs or symptoms. Severity of symptoms: At their worst the symptoms were moderate, in the emergency department the symptoms are unchanged. The patient has experienced similar episodes in the past, a few times. 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 - Social history:: Smoking status: Patient reports the use of cigarette tobacco products, 1-2/day. ROS: 04:32 Constitutional: Negative for fever, chills, and weight loss, Eyes: Negative for injury, tw4 pain, redness, and discharge, Cardiovascular: Negative for chest pain, palpitations, and edema, Respiratory: Negative for shortness of breath, cough, wheezing, and pleuritic chest pain, Abdomen/GI: Negative for abdominal pain, nausea, vomiting, diarrhea, and constipation, Back: Negative for injury and pain, MS/Extremity: Negative for injury and deformity, Skin: Negative for injury, rash, and discoloration. 04:32 ENT: Positive for dental pain, ear pain. Exam: 04:32 Constitutional: This is a well developed, well nourished patient who is awake, alert, tw4 and in no acute distress. Head/Face: Normocephalic, atraumatic. Neck: Trachea midline, no thyromegaly or masses palpated, and no cervical lymphadenopathy. Supple, full range of motion without nuchal rigidity, or vertebral point tenderness. No Meningismus. Chest/axilla: Normal chest wall appearance and motion. Nontender with no deformity. No lesions are appreciated. Cardiovascular: Regular rate and rhythm with a normal S1 and S2. No gallops, murmurs, or rubs. Normal PMI, no JVD. No pulse deficits. 04:32 ENT: Dental exam: dental caries, that is mild, specifically in the upper right third molar (#1), upper right second molar (#2), lower right second molar (#31) and lower right third molar (#32), pain, that is moderate, specifically in the upper right third molar (#1), upper right second molar (#2), lower right second molar (#31) and lower right third molar (#32). Vital Signs: 04:14 BP 130 / 99; Pulse 84; Resp 20; Temp 98.1; Pulse Ox 96% on R/A; Weight 88.45 kg; Height vc 5 ft. 2 in. (157.48 cm); Pain 10/10; 04:15 BP 130 / 99; Pulse 84; Temp 98.1; Pulse Ox 96% on R/A; Weight 88.45 kg; Height 5 ft. 2 tt3 in. (157.48 cm); Pain 10/10; 04:15 Body Mass Index 35.67 (88.45 kg, 157.48 cm) tt3 MDM: 04:11 Patient medically screened. tw4 06:06 Differential diagnosis: dental caries, gingivitis, dental abscess. Data reviewed: vital tw4 signs, nurses notes. Data interpreted: Pulse oximetry: Interpretation: normal. Counseling: I had a detailed discussion with the patient and/or guardian regarding: the historical points, exam findings, and any diagnostic results supporting the discharge/admit diagnosis. Special discussion: I discussed with the patient/guardian in detail that at this point there is no indication for admission to the hospital. It is understood, however, that if the symptoms persist or worsen the patient needs to return immediately for re-evaluation. Administered Medications: No medications were administered Disposition: 06/15/20 04:30 Discharged to Home. Impression: Dental caries, unspecified, Chronic pain, not elsewhere classified. - Condition is Stable. - Discharge Instructions: Dental Pain, [id number]. - Medication Reconciliation Form, Thank You Letter, Antibiotic Education, Prescription Opioid Use form. - Follow up: Private Physician; When: Upon discharge from the Emergency Department; Reason: Recheck today's complaints, Continuance of care, Re-evaluation by your physician. - Problem is an ongoing problem. - Symptoms are unchanged. Signatures: James Vallejo MD MD tw4 Daylin De La O RN RN vc Corrections: (The following items were deleted from the chart) 04:32 04:30 06/15/2020 04:30 Discharged to Home. Impression: Dental caries, unspecified; vc Chronic pain, not elsewhere classified. Condition is Stable. Forms are Medication Reconciliation Form, Thank You Letter, Antibiotic Education, Prescription Opioid Use. Follow up: Private Physician; When: Upon discharge from the Emergency Department; Reason: Recheck today's complaints, Continuance of care, Re-evaluation by your physician. Problem is an ongoing problem. Symptoms are unchanged. tw4
== END 2020-06-15 04:32 | disposition home or self-care (01) ==
LOC: ER 04:03
DX: K02.9 Dental caries, unspecified (principal); G89.29 Other chronic pain; F17.210 Nicotine dependence, cigarettes, uncomplicated
CPT/HCPCS: 99282

== ENCOUNTER 2023-03-16 14:47 | Emergency (ER) | payer SELFPAY ==
--- OUTSIDE RECORDS SUMMARY | 2023-03-16 14:50 | XMS REPORT | Continuity of Care Document ---
:1990 Author Organization [facility] t Address [address] [place] [address] Care Team Providers Name Role Phone Pcp, Patient Does Not Have A Primary Care Physician [id number] Keanu Gay NP Attending Clinician Jenae Pierce RN Attending Clinician Unavailable KEANU GAY Attending Clinician Unavailable Doctor Unassigned, [place] Attending Clinician Unavailable Jayne Kennedy MA Attending Clinician Unavailable Only, Web Test Attending Clinician Unavailable Payers Payer Name Policy Type Policy Number Effective Date Expiration Date S ource Problems Condition Condition Condition Status Onset Resolution Last Treating Co mments Source Name Details Category Date Date Treatment Clinician Date Vaginal Vaginal Disease Active Univers discharge discharge 4-16 ity of 00:00: [place] 00 [facility] Branch Pain Pain Disease Active Univers pelvic pelvic 4-16 ity of 00:00: [place] 00 Medical [facility] Breast Breast Disease Active 2016-10 Univers discharge discharge 2-11 ity of 00:00: [place] 00 Medical Branch Routine Routine Disease Active 2015-10 Univers gynecologi gynecologi 1-11 it y of estella estella 00:00: [place] examinatio examinatio 00 Me dical n n Branch Fibroadeno Fibroadeno Disease Active Overview : Univers lamine raman 4-23 Formattin ity of 00:00: g of this [place] 00 note Medical might be Branch different from the original. Medical records from [facility] on 4. Mammogram on left breast. Barbi n. 1.1cm hyyopecho ic structure within the upper-out er left breast most likely represent ing a fibroaden traci. F/U [facility] in 6 months. Benign appearing right breast. BIRADS - category II. Probably benign. BMI BMI Disease Active Overview: Univer s 38.0-38.9, 38.0-38.9, 4-23 Formattin ity of adult adult 00:00: g of this [place] 00 note Medical might be Branch different from the original. ICD10 Diagnosis Term Recruiting Team Lead Utility Allergies, Adverse Reactions, Alerts Allergy Allergy Status Severity Reaction(s) Onset Inactive Treating Comm ents Source Name Type Date Date Clinician NO KNOWN Drug Active Univers ALLERGIE Class ity of S [facility] Social History Social Habit Start Date Stop Date Quantity Comments Source History [facility] o f Alcohol Frequency [facility] Branch History [facility] University o f Alcohol Std Drinks [facility] History [facility] o f Alcohol Binge [facility] Alcohol intake 2023-01-24 2023-01-24 0 /d University of 00:00:00 00:00:00 [facility] Exposure to 2022-12-21 2022-12-31 Not sure University SARS-CoV-2 (event) 00:00:00 14:59:00 [facility] Cigarettes smoked 2022-12-31 2022-12-31 Univers ity of current (pack per 00:00:00 00:00:00 [facility] ) - Reported Branch Tobacco use and 2022-12-31 2022-12-31 Smokeless Universit y of exposure 00:00:00 00:00:00 tobacco non-user [facility] dical [facility] Tobacco Comment 2022-12-31 2022-12-31 2-3 Universit y of 00:00:00 00:00:00 cigarretes/day [facility] History of tobacco 2006-09-20 2015-03-11 Cigarette Smoker University of use 00:00:00 00:00:00 [facility] Alcohol Comment 2014-01-31 2014-01-31 weekends Universit y of 00:00:00 00:00:00 [facility] Sex Ass[birth year] At [birth year] Universit y of 00:00:00 00:00:00 [facility] Smoking Status Start Date Stop Date Source Ex-smoker 2022-12-31 00:00:00 2022-12-31 00:00:00 Universi ty of [facility] Medications Ordered Filled Start Stop Current Ordering Indication Dosage Frequency Signature Comments Components Source Medication Medication Date Date Medication? Clinician (SIG) Name Name belinda Yes [id number] .35mg Take 1 Univers ne (ORTHO 5-24 tablet by ity o f MICRONOR) [place] 0[place] 00 the Medical tablet morning. Branch metroNIDAZO 2022- No [id number] 500mg Take 1 Univers LE 500 mg 12-31 tablet by ity of tablet 00:00: 04:59 mouth [place] 00 :00 every 12 Medical (twelve) Branch hours for 7 days. metroNIDAZO 2022- No [id number] 500mg Take 1 Univers LE 500 mg 12-31 tablet by ity of tablet 00:00: 04:59 mouth [place] 00 :00 every 12 Medical (twelve) Branch hours for 7 days. terconazole 2022- No [id number] 80mg Insert 1 Univers 80 mg 12-31 Suppositor ity of vaginal 00:00: 04:59 y into [place] suppository 00 :00 vagina at [facility] for 3 days. terconazole 2022- No [id number] 80mg Insert 1 Univers 80 mg 12-31 Suppositor ity of vaginal 00:00: 04:59 y into [place] suppository 00 :00 vagina at [facility] for 3 days. No known No Univers medications 6-21 ity of 11:16: [address] Branch Immunizations Ordered Filled Immunization Date Status Comments Sour e Immunization Name Name SARS-COV-2 COVID-19 2022-04-17 Completed Unive rsity of PFIZER MARY-SUCROSE 00:00:00 [place] Medical VACCINE (NEGRON TOP) Branch SARS-COV-2 COVID-19 2022-04-17 Completed Unive rsity of PFIZER MARY-SUCROSE 00:00:00 [place] Medical VACCINE (NEGRON TOP) Branch SARS-COV-2 COVID-19 2022-04-17 Completed Unive rsity of PFIZER MARY-SUCROSE 00:00:00 [place] Medical VACCINE (NEGRON TOP) Branch SARS-COV-2 COVID-19 2022-04-17 Completed Unive rsity of PFIZER MARY-SUCROSE 00:00:00 [place] Medical VACCINE (NEGRON TOP) Branch SARS-COV-2 COVID-19 2022-04-17 Completed Unive rsity of PFIZER MARY-SUCROSE 00:00:00 [place] Medical VACCINE (NEGRON TOP) Branch SARS-COV-2 COVID-19 2022-04-17 Completed Unive rsity of PFIZER MARY-SUCROSE 00:00:00 [place] Medical VACCINE (NEGRON TOP) Branch SARS-COV-2 COVID-19 2022-03-27 Completed Unive rsity of PFIZER MARY-SUCROSE 00:00:00 [place] Medical VACCINE (NEGRON TOP) Branch SARS-COV-2 COVID-19 2022-03-27 Completed Unive rsity of PFIZER MARY-SUCROSE 00:00:00 [place] Medical VACCINE (NEGRON TOP) Branch SARS-COV-2 COVID-19 2022-03-27 Completed Unive rsity of PFIZER MARY-SUCROSE 00:00:00 [place] Medical VACCINE (NEGRON TOP) Branch SARS-COV-2 COVID-19 2022-03-27 Completed Unive rsity of PFIZER MARY-SUCROSE 00:00:00 [place] Medical VACCINE (NEGRON TOP) Branch SARS-COV-2 COVID-19 2022-03-27 Completed Unive rsity of PFIZER MARY-SUCROSE 00:00:00 [place] Medical VACCINE (NERGON TOP) Branch SARS-COV-2 COVID-19 2022-03-27 Completed Unive rsity of PFIZER MARY-SUCROSE 00:00:00 [place] Medical VACCINE (NEGRON TOP) Branch Varicella 2017-12-17 Completed University of (varivax)(chicken 00:00:00 [place] M edical pox) Branch Varicella 2017-12-17 Completed University of (varivax)(chicken 00:00:00 [place] M edical pox) Branch Varicella 2017-12-17 Completed University of (varivax)(chicken 00:00:00 [place] M edical pox) Branch Varicella 2017-12-17 Completed University of (varivax)(chicken 00:00:00 [place] M edical pox) Branch Varicella 2017-12-17 Completed University of (varivax)(chicken 00:00:00 [place] M edical pox) Branch Varicella 2017-12-17 Completed University of (varivax)(chicken 00:00:00 [place] M edical pox) Branch HPV9 2016-08-21 Completed University of 00:00:00 [facility] TDAP 2016-08-21 Completed [facility] HPV9 2016-08-21 Completed [facility] 00:[facility]00 [facility] TDAP 2016-08-21 Completed University of 00:00:00 [facility] HPV9 2016-08-21 Completed University of 00:00:00 [facility] TDAP 2016-08-21 Completed University [facility] 00:00:00 [facility] HPV9 2016-08-21 Completed University of 00:00:00 [facility] TDAP 2016-08-21 Completed University of 00:00:00 [facility] HPV9 2016-08-21 Completed University of 00:00:00 [facility] TDAP 2016-08-21 Completed University of 00:00:00 [facility] HPV9 2016-08-21 Completed University of 00:00:00 [facility] TDAP 2016-08-21 Completed University of 00:00:00 [facility] HPV9 2016-08-21 Completed University of 00:00:00 [facility] TDAP 2016-08-21 Completed University of 00:00:00 [facility] MMR 2015-09-26 Completed University of 00:00:00 [facility] TDAP 2015-09-26 Completed University of 00:00:00 [facility] Varicella 2015-09-26 Completed University of (varivax)(chicken 00:00:00 [facility] edical pox) Branch MMR 2015-09-26 Completed University of 00:00:00 [facility] TDAP 2015-09-26 Completed University of 00:00:00 [facility] Varicella 2015-09-26 Completed University of (varivax)(chicken 00:00:00 [place] M edical pox) Branch MMR 2015-09-26 Completed University of 00:00:00 [facility] TDAP 2015-09-26 Completed University of 00:00:00 [facility] Varicella 2015-09-26 Completed University of (varivax)(chicken 00:00:00 [facility] edical pox) Branch MMR 2015-09-26 Completed University of 00:00:00 [facility] TDAP 2015-09-26 Completed University of 00:00:00 [facility] Varicella 2015-09-26 Completed University of (varivax)(chicken 00:00:00 [place] M edical pox) Branch MMR 2015-09-26 Completed University [facility] 00:00:00 [facility] TDAP 2015-09-26 Completed University of 00:00:00 [facility] Varicella 2015-09-26 Completed University of (varivax)(chicken 00:00:00 [place] M edical pox) Branch MMR 2015-09-26 Completed University of 00:00:00 [facility] TDAP 2015-09-26 Completed University of 00:00:00 [facility] Varicella 2015-09-26 Completed University of (varivax)(chicken 00:00:00 [place] M edical pox) Branch Hep B, Unspecified 2015-01-14 Completed Univer sity of Formulation 00:00:00 [facility] Hep B, Unspecified 2015-01-14 Completed Univer sity of Formulation 00:00:00 [facility] Hep B, Unspecified 2015-01-14 Completed Univer sity of Formulation 00:00:00 [facility] Hep B, Unspecified 2015-01-14 Completed Univer sity of Formulation 00:00:00 [facility] Hep B, Unspecified 2015-01-14 Completed Univer sity of Formulation 00:00:00 [facility] Hep B, Unspecified 2015-01-14 Completed Univer sity of Formulation 00:00:00 [facility] Hep B, Unspecified 2014-12-11 Completed Univer sity of Formulation 00:00:00 [facility] Hep B, Unspecified 2014-12-11 Completed Univer sity of Formulation 00:00:00 [facility] Hep B, Unspecified 2014-12-11 Completed Univer sity of Formulation 00:00:00 [facility] Hep B, Unspecified 2014-12-11 Completed Univer sity of Formulation 00:00:00 [facility] Hep B, Unspecified 2014-12-11 Completed Univer sity of Formulation 00:00:00 [facility] Hep B, Unspecified 2014-12-11 Completed Univer sity of Formulation 00:00:00 [facility] TD, NOS 2005-01-31 Completed University of 00:00:00 [facility] TD, NOS 2005-01-31 Completed University of 00:00:00 [facility] TD, NOS 2005-01-31 Completed University of 00:00:00 [facility] Td 2005-01-31 Completed University of 00:00:00 [facility] TD, NOS 2005-01-31 Completed University of 00:00:00 [facility] TD, NOS 2005-01-31 Completed University of 00:00:00 [facility] TD, NOS 2005-01-31 Completed University of 00:00:00 [facility] Hep B, Unspecified 2003-01-10 Completed Univer sity of Formulation 00:00:00 [place] [facility] Hep B, Unspecified 2003-01-10 Completed Univer sity of Formulation 00:00:00 [place] [facility] Hep B, Unspecified 2003-01-10 Completed Univer sity of Formulation 00:00:00 [place] [facility] Hep B, Unspecified 2003-01-10 Completed Univer sity of Formulation 00:00:00 [place] [facility] Hep B, Unspecified 2003-01-10 Completed Univer sity of Formulation 00:00:00 [place] [facility] Hep B, Unspecified 2003-01-10 Completed Univer sity of Formulation 00:00:00 [place] [facility] Hep B, Unspecified 2002-08-11 Completed Univer sity of Formulation 00:00:00 [place] [facility] Hep B, Unspecified 2002-08-11 Completed Univer sity of Formulation 00:00:00 [place] [facility] Hep B, Unspecified 2002-08-11 Completed Univer sity of Formulation 00:00:00 [place] [facility] Hep B, Unspecified 2002-08-11 Completed Univer sity of Formulation 00:00:00 [place] [facility] Hep B, Unspecified 2002-08-11 Completed Univer sity of Formulation 00:00:00 [place] [facility] Hep B, Unspecified 2002-08-11 Completed Univer sity of Formulation 00:00:00 [place] [facility] MMR 2002-03-01 Completed University of 00:00:00 [place] [facility] Hep B, Unspecified 2002-03-01 Completed Univer sity of Formulation 00:00:00 [place] [facility] MMR 2002-03-01 Completed University of 00:00:00 [place] [facility] Hep B, Unspecified 2002-03-01 Completed Univer sity of Formulation 00:00:00 [facility] MMR 2002-03-01 Completed University of 00:00:00 [place] [facility] Hep B, Unspecified 2002-03-01 Completed Univer sity of Formulation 00:00:00 [facility] MMR 2002-03-01 Completed University of 00:00:00 [facility] Hep B, Unspecified 2002-03-01 Completed Univer sity of Formulation 00:00:00 [facility] MMR 2002-03-01 Completed University of 00:00:00 [facility] Hep B, Unspecified 2002-03-01 Completed Univer sity of Formulation 00:00:00 [facility] MMR 2002-03-01 Completed University of 00:00:00 [facility] Hep B, Unspecified 2002-03-01 Completed Univer sity of Formulation 00:00:00 [facility] Vital Signs Vital Name Observation Time Observation Value Comments Source Systolic blood 2022-12-31 20:18:00 119 mm[Hg] Univer sity of pressure [facility] Diastolic blood 2022-12-31 20:18:00 73 mm[Hg] Unive rsity of [facility] Heart rate 2022-12-31 20:18:00 88 /min [facility] Body temperature 2022-12-31 20:18:00 36.56 [facility] 2022-12-31 20:18:00 16 /min [facility] Body height 2022-12-31 20:18:00 157.5 cm [facility] Body weight 2022-12-31 20:18:00 94.348 kg [facility] BMI 2022-12-31 20:18:00 38.04 kg/m2 [facility] Procedures Procedure Date / Time Performed Performing Clinician Sour e ASSIGNMENT OF BENEFITS 2022-12-31 20:00:41 Doctor Unassigned, No [facility] EXTERNAL LAB CHLAMYDIA 2019-01-06 13:00:00 Doctor Unassigned, No [facility] EXTERNAL PAP SMEAR 2019-01-06 13:00:00 [facility] Start End Encounter Admission Attending Care Care Encounter Source Date/Time Date/Time Type Type Clinicians Facility Department ID 2023-03-03 2023-03-03 Telephone RANDA Gay 1.2.840.11 [id number] [facility] 00:00:00 00:00:00 Keanu GARSIA 350.1.13.10 it [place] [id number] [address] 2023-01-29 2023-01-29 Telephone Romaine [facility] [id number] Univers 00:00:00 00:00:00 Keanu GARSIA 350.1.13.10 [place] [facility] [id number] [address] 2023-01-12 2023-01-12 Telephone Kari [facility] [id number] Univers 00:00:00 00:00:00 Jenae GARSIA 350.1.13.10 [place] [facility] [id number] [address] 2022-12-31 2022-12-31 Outpatient R KEANU GAY [facility] B [id number] Univers 15:30:00 15:59:23 KEANU GAY [facility] 2022-12-31 2022-12-31 [facility] 1.2.840.114 [id number] Univers 15:30:00 15:59:23 Visit eKanu ADY 350.1.13.10 [place] [id number] [address] 2022-12-31 2022-12-31 Orders Doctor DANIEL [id number] [id number] Univers 00:00:00 00:00:00 Only Unassigned, GENNY 350.1.13.10 ity of [place] [facility] 4.2.7.2.686 [place] as [id number] [place] [id number] Branch 2022-12-22 2022-12-22 Outpatient R KEANU GAY [facility] B [id number] Univers 14:30:00 14:30:00 KEANU GAY [facility] 2021-10-23 2021-10-23 Pre Visit SOFI Kennedy [id number] Univers 00:00:00 00:00:00 Outreach Jayne CRONIN 350.1.13.10 i [place] [id number] [place] [id number] Branch 2020-04-22 2020-04-22 Laboratory Only, [facility] 1.2.840.114 [id number] 16:11:19 16:26:19 Only Test Health 350.1.13.10 Specialty 4.2.7.2.686 [facility] [id number] [place] [address] 2020-04-22 2020-04-22 Outpatient R [facility] [id number] Univers 16:15:00 16:15:00 [facility] Results Test Description Test Time Test Comments Results Result Comments Source EXTERNAL LAB CHLAMYDIA 2019-01-06 00:00:00 Test Item Value Reference Range Interpretation Comme nts External Chlamydia AB Panel (test code = 5044) Negative Negativ e [facility]
[2023-03-16 15:39] LABS: Absolute Lymphocytes (CBC) 1.9 K/uL (0.7-4.9); Hematocrit 20.9 % (36.0-45.0); Lymphocytes % 16.4 % (15.3-44.8); MPV 6.8 fL (7.6-11.3); RBC Red Blood Cell Count 3.42 M/uL (3.86-4.86)
[2023-03-16 15:40] LABS: Platelet Estimate INCR; White Blood Cell Scan OK (OK)
[2023-03-16 15:41] LABS: Blood Morphology Comment NOTED (NOT SEEN); Hypochromasia 2+
[2023-03-16 15:51] LABS: Potassium 3.9 mEq/L (3.5-5.1)
--- NOTE | 2023-03-16 16:04 | RAD REPORT ---
EXAM DESCRIPTION: US - Transvaginal Study Probe - 03/16/2023 3:49 pm CLINICAL HISTORY: VAGINAL BLEEDING Pelvic pain. COMPARISON: No comparisons FINDINGS: The uterus is normal in size, shape and echotexture. The uterus measures 10.7 x 5.9 cm. Va tonya hypoechoic lesion is present anterior myometrium measuring 15 x 17 mm probably a fibroid. The endometrial stripe measures 22 mm, thickened. Left ovary nonvisualized due to bowel gas. The right ovary is prominent in size. The right ovary katlyn ures 5.2 x 5.2 cm. 4.5 cm cyst is present right ovary. Normal blood flow right ovary. No significant pelvic ascites. IMPRESSION: Suspected 17 mm fibroid anterior myometrium. Nonspecific thickened endometrial stripe. 4.5 cm right ovarian cyst.
[2023-03-16 16:44] LABS: Specific Gravity 1.008 (1.005-1.030)
[2023-03-16] MEDS ORDERED: NA CHLORIDE 0.9% 500 ML ONE (17:10)
[2023-03-16] MEDS ORDERED: MEDROXYPROGEST ACET 150 MG/ML IM ONE ×2 (18:18→19:00)
--- NOTE | 2023-03-16 22:49 | EDPHYS ---
Physician Documentation [facility] Name: Linsey Lauren Age: 32 yrs Sex: Female : 1990 Arrival Date: 03/16/2023 Time: 14:47 Bed 12 Private MD: ED Physician Tu Warren HPI: 03/16 15:59 This 32 yrs old Female presents to ER via Ambulatory with complaints of rn Weakness. 15:59 Pt reports generalized weakness and vaginal bleeding for at least a month. Seen by [facility], rn put on control pills, still bleeding. Told in past had a fibroid. No syncope. No sob. No chest pain.. Onset: The symptoms/episode began/occurred at an unknown time. Severity of symptoms: At their worst the symptoms were moderate in the emergency department the symptoms are unchanged. The patient has experienced similar episodes in the past. The patient has been recently seen by a physician:. Historical: - Allergies: 15:08 Morphine (Upset stomach); aa5 - PMHx: 15:04 Fibromyalgia; aa5 - PSHx: 15:08 left breast; Appendectomy; Cholecystectomy; hernia; aa5 - Immunization history:: Adult Immunizations unknown. - Social history:: Smoking status: Patient reports the use of cigarette tobacco products, denies chronic smoking, but will smoke occasionally. - Family history:: not pertinent. - Hospitalizations: : No recent hospitalization is reported. ROS: 15:59 Constitutional: Negative for fever, chills, and weight loss, Cardiovascular: Negative rn for chest pain, palpitations, and edema, Respiratory: Negative for shortness of breath, cough, wheezing, and pleuritic chest pain, Abdomen/GI: Negative for abdominal pain, nausea, vomiting, diarrhea, and constipation, : + vaginal bleeding MS/Extremity: Negative for injury and deformity, Skin: Negative for injury, rash, and discoloration, Neuro: + generalized weakness Exam: 15:59 Constitutional: This is a well developed, well nourished patient who is awake, alert, rn and in no acute distress. Head/Face: Normocephalic, atraumatic. Eyes: Slightly pale conjunctivae Cardiovascular: Regular rate and rhythm. No pulse deficits. Respiratory: No increased work of breathing, no retractions or nasal flaring. Abdomen/GI: soft, non-tender, non-distended Skin: Warm, dry MS/ Extremity: Pulses equal, no cyanosis Neuro: Awake and alert, GCS 15 Vital Signs: 15:02 BP 136 / 85; Pulse 100; Resp 20 S; Temp 97.1(TE); Pulse Ox 100% on R/A; Weight 95.25 kg aa5 (R); Height 5 ft. 2 in. (R); 16:58 BP 135 / 99; Pulse 93; Resp 16; Pulse Ox 100% on R/A; mb9 17:25 BP 124 / 72; Pulse 83; Resp 20; Temp 97.1(TE); Pulse Ox 99% on R/A; mb9 17:30 BP 121 / 77; Pulse 74; Resp 19; Temp 97.3(TE); Pulse Ox 100% on R/A; mb9 17:35 BP 119 / 73; Pulse 74; Resp 18; Temp 97.5(TE); Pulse Ox 100% on R/A; mb9 17:40 BP 112 / 71; Pulse 77; Resp 17; Temp 97.7(TE); Pulse Ox 100% on R/A; mb9 20:20 BP 100 / 88; Pulse 87; Resp 17; Temp 97.3; Pulse Ox 100% on R/A; mb9 20:25 BP 119 / 67; Pulse 80; Resp 16; Temp 97.5; Pulse Ox 100% on R/A; mb9 20:30 BP 127 / 73; Pulse 74; Resp 18; Temp 97.6; Pulse Ox 99% on R/A; mb9 20:35 BP 123 / 70; Pulse 72; Resp 17; Temp 97.5; Pulse Ox 100% on R/A; mb9 22:53 BP 110 / 64; Pulse 77; Resp 18; Pulse Ox 100% on R/A; mb9 15:02 Body Mass Index 38.41 (95.25 kg, 157.48 cm) aa5 17:25 Baseline for blood transfusion mb9 17:30 first 5 minutes for blood transfusion mb9 20:20 baseline for 2nd blood transfusion mb9 MDM: 15:00 Patient medically screened. rn 17:17 ED course: Pt tearful about needing blood transfusion, explained process and consented rn for transfusion, patient more calm. . 17:33 ED course: Pt currently on OCPs, patient cannot tell me which ones, does not have a rn picture of prescription either.. 22:45 Data reviewed: vital signs, nurses notes, lab test result(s), radiologic studies, cp ultrasound. 22:45 Consideration of Admission/Observation Escalation of care including cp admission/observation considered. I considered the following discharge prescriptions or medication management in the emergency department Medications were administered in the Emergency Department. See MAR. Counseling: I had a detailed discussion with the patient and/or guardian regarding: the historical points, exam findings, and any diagnostic results supporting the discharge/admit diagnosis, lab results, radiology results, the need for outpatient follow up, for definitive care, an OB/Gyne specialist, to return to the emergency department if symptoms worsen or persist or if there are any questions or concerns that arise at home. Response to treatment: the patient's symptoms have markedly improved after treatment, and as a result, I will discharge patient. 03/16 15:09 Order name: Basic Metabolic Panel; Complete Time: 16:22 rn 03/16 15:09 Order name: CBC with Diff; Complete Time: 16:22 rn 03/16 15:09 Order name: Test, Urine; Complete Time: 17:30 rn 03/16 15:09 Order name: Type And Screen rn 03/16 15:42 Order name: CBC Smear Scan; Complete Time: 16:22 [facility] 03/16 16:28 Order name: Bb Add On bd 03/16 16:33 Order name: Packed RBC Leukored [facility] 03/16 15:47 Order name: Transvaginal Study Probe; Complete Time: 16:22 [facility] 03/16 15:09 Order name: IV Saline Lock; Complete Time: 16:53 rn 03/16 15:09 Order name: Labs collected and sent; Complete Time: 16:53 rn Administered Medications: 18:19 Drug: DepoProvera - medroxyPROGESTERone IM 150 mg Route: IM; Site: right deltoid; mb9 22:55 Follow up: Response: No adverse reaction mb9 Disposition Summary: 03/16/23 22:49 Discharge Ordered Location: Home cp Problem: new cp Symptoms: have improved cp Condition: Stable cp Diagnosis - Abnormal uterine and vaginal bleeding, unspecified cp - Anemia, unspecified cp Followup: cp - With: Private Physician - When: 2 - 3 days - Reason: Recheck today's complaints Discharge Instructions: - Discharge Summary Sheet cp - Abnormal Uterine Bleeding cp - Anemia cp Forms: - Medication Reconciliation Form cp - Thank You Letter cp - Antibiotic Education cp - Prescription Opioid Use cp Signatures: Dispatcher [employer] EDMS Tu Warren MD MD rn Calderon, Audri RN RN aa5 Nahum Dominguez PA PA cp Breneman, Mary Beth RN RN mb9 Corrections: (The following items were deleted from the chart) 15:08 15:04 Allergies: Morphine; aa5 aa5 15:46 15:09 Pelvis Complete+US.RAD.BRZ ordered. EDMS EDMS
--- NOTE | 2023-03-16 22:49 | ER ---
Nurse's Notes [facility] Name: Linsey Lauren Age: 32 yrs Sex: Female : 1990 Arrival Date: 03/16/2023 Time: 14:47 Bed 12 Private MD: Diagnosis: Abnormal uterine and vaginal bleeding, unspecified;Anemia, unspecified Presentation: 03/16 15:02 Chief complaint: Patient states: vaginal bleeding x 1 month ago. Pt reports generalized aa5 weakness, chills, and left rib pain. Coronavirus screen: chills. Ebola Screen: Patient denies travel to an Ebola-affected area in the 21 days before illness onset. Initial Sepsis Screen: Does the patient meet any 2 criteria? HR > 90 bpm. Does the patient have a suspected source of infection? No. Patient's initial sepsis screen is negative. Risk Assessment: Do you want to hurt yourself or someone else? Patient reports no desire to harm self or others. Onset of symptoms was 2022. 15:02 Acuity: HANH 3 aa5 15:02 Method Of Arrival: Ambulatory aa5 Historical: - Allergies: 15:08 Morphine (Upset stomach); aa5 - PMHx: 15:04 Fibromyalgia; aa5 - PSHx: 15:08 left breast; Appendectomy; Cholecystectomy; hernia; aa5 - Immunization history:: Adult Immunizations unknown. - Social history:: Smoking status: Patient reports the use of cigarette tobacco products, denies chronic smoking, but will smoke occasionally. - Family history:: not pertinent. - Hospitalizations: : No recent hospitalization is reported. Screenin:31 [facility] ED Fall Risk Assessment (Adult) History of falling in the last 3 months, mb9 including since admission No falls in past 3 months (0 pts) Confusion or Disorientation No (0 pts) Intoxicated or Sedated No (0 pts) Impaired Gait No (0 pts) Mobility Assist Device Used No (0 pt) Altered Elimination No (0 pt) Score/Fall Risk Level 0 - 2 = Low Risk Oriented to surroundings, Maintained a safe environment, Educated pt \T\ family on fall prevention, incl call for assistance when getting out of bed. Abuse screen: Denies threats or abuse. Nutritional screening: No deficits noted. Tuberculosis screening: No symptoms or risk factors identified. Assessment: 16:30 Reassessment: pt brought back to ER room. mb9 16:47 Reassessment: Blood transfusion consent form signed by pt. mb9 16:53 General: Appears uncomfortable, Behavior is anxious. Pain: Denies pain. Neuro: Level of mb9 Consciousness is awake, alert, obeys commands, Oriented to person, place, time, situation, Appropriate for age. Cardiovascular: Heart tones S1 S2 present. Respiratory: Airway is patent Respiratory effort is even, unlabored, Respiratory pattern is regular, symmetrical, Breath sounds are clear bilaterally. GI: Abdomen is round non-distended, Bowel sounds present X 4 quads. Abd is soft and non tender X 4 quads. Derm: Skin is intact, Skin is dry, Skin is pale. Musculoskeletal: Range of motion: intact in all extremities. 16:53 : Reports vaginal bleeding that is bright red. mb9 17:00 Reassessment: Pt voicing anxiety about blood transfusion, MD was notified and no mb9 further orders were received. 17:25 Reassessment: RBC transfusion initiated. See blood transfusion record sheet for more mb9 information. 19:00 Reassessment: Patient and/or family updated on plan of care and expected duration. Pain mb9 level reassessed. Patient is alert, oriented x 3, equal unlabored respirations, skin warm/dry/pink. Patient states feeling better. Patient states symptoms have improved. 20:00 Reassessment: Patient and/or family updated on plan of care and expected duration. Pain mb9 level reassessed. Patient is alert, oriented x 3, equal unlabored respirations, skin warm/dry/pink. Patient states feeling better. Patient states symptoms have improved. 20:20 Reassessment: 2nd RBC transfusion started. See blood transfusion record form for more mb9 information. 22:53 Reassessment: Patient and/or family updated on plan of care and expected duration. Pain mb9 level reassessed. Patient is alert, oriented x 3, equal unlabored respirations, skin warm/dry/pink. Patient states feeling better. Patient states symptoms have improved. Vital Signs: 15:02 BP 136 / 85; Pulse 100; Resp 20 S; Temp 97.1(TE); Pulse Ox 100% on R/A; Weight 95.25 kg aa5 (R); Height 5 ft. 2 in. (R); 16:58 BP 135 / 99; Pulse 93; Resp 16; Pulse Ox 100% on R/A; mb9 17:25 BP 124 / 72; Pulse 83; Resp 20; Temp 97.1(TE); Pulse Ox 99% on R/A; mb9 17:30 BP 121 / 77; Pulse 74; Resp 19; Temp 97.3(TE); Pulse Ox 100% on R/A; mb9 17:35 BP 119 / 73; Pulse 74; Resp 18; Temp 97.5(TE); Pulse Ox 100% on R/A; mb9 17:40 BP 112 / 71; Pulse 77; Resp 17; Temp 97.7(TE); Pulse Ox 100% on R/A; mb9 20:20 BP 100 / 88; Pulse 87; Resp 17; Temp 97.3; Pulse Ox 100% on R/A; mb9 20:25 BP 119 / 67; Pulse 80; Resp 16; Temp 97.5; Pulse Ox 100% on R/A; mb9 20:30 BP 127 / 73; Pulse 74; Resp 18; Temp 97.6; Pulse Ox 99% on R/A; mb9 20:35 BP 123 / 70; Pulse 72; Resp 17; Temp 97.5; Pulse Ox 100% on R/A; mb9 22:53 BP 110 / 64; Pulse 77; Resp 18; Pulse Ox 100% on R/A; mb9 15:02 Body Mass Index 38.41 (95.25 kg, 157.48 cm) aa5 17:25 Baseline for blood transfusion mb9 17:30 first 5 minutes for blood transfusion mb9 20:20 baseline for 2nd blood transfusion mb9 ED Course: 14:48 Patient arrived in ED. rg4 15:00 Tu Warren MD is Attending Physician. rn 15:02 Arm band placed on. aa5 15:03 Triage completed. aa5 15:33 Initial lab(s) drawn, by me, sent to lab. Inserted saline lock: 20 gauge in right tm3 antecubital area, using aseptic technique. 15:51 Transvaginal Study Probe In Process Unspecified. EDMS 16:29 Stacy Thurston, REID is Primary Nurse. mb9 16:30 Placed in gown. Bed in low position. Call light in reach. Side rails up X 1. Client mb9 placed on continuous cardiac and pulse oximetry monitoring. NIBP monitoring applied. residential monitor on. 16:31 No provider procedures requiring assistance completed. mb9 17:46 Nahum Dominguez PA is PSYCHIATRICP. cp 22:53 IV discontinued, intact, bleeding controlled, No redness/swelling at site. Pressure mb9 dressing applied. Administered Medications: 18:19 Drug: DepoProvera - medroxyPROGESTERone IM 150 mg Route: IM; Site: right deltoid; mb9 22:55 Follow up: Response: No adverse reaction mb9 Medication: 16:31 VIS not applicable for this client. mb9 Outcome: 22:49 Discharge ordered by . cp 22:53 Discharged to home ambulatory. mb9 22:53 Condition: stable 22:53 Discharge instructions given to patient, Instructed on discharge instructions, follow up and referral plans. Demonstrated understanding of instructions, follow-up care. 23:02 Patient left the ED. mb9 Signatures: Dispatcher [employer] EDMS Johnyaneli Brett tm3 Tu Warren MD MD rn Calderon, Audri RN RN aa5 Nahum Dominguez PA PA cp Garcia, Rubi Stacy Barr RN RN mb9 Corrections: (The following items were deleted from the chart) 15:08 15:04 Allergies: Morphine; aa5 aa5 17:46 16:53 GI: Abdomen is round non-distended, Bowel sounds present X 4 quads. Abd is soft mb9 and non tender X 4 quads. mb9
[2023-03-17 00:37] VITALS: TEMP 97.5; O2SAT 100
[2023-03-17 00:38] VITALS: BP 110/64
== END 2023-03-16 23:02 | disposition home or self-care (01) ==
LOC: ER 14:47
DX: D64.9 Anemia, unspecified (principal); N93.9 Abnormal uterine and vaginal bleeding, unspecified
CPT/HCPCS: 36415; 76830; 80048; 81025; 85025; 86850; 86900; 86901; 86920; 96372; 99285; J1050; J7040; P9016

== ENCOUNTER → 2023-11-10 | Emergency (ER) | payer OTHER, SELFPAY ==
[~2023-11-10] MED LIST: FAMOTIDINE 20 MG/2 ML VIAL IV ONE; KETOROLAC 30 MG/ML INJ ONE
--- OUTSIDE RECORDS SUMMARY | 2023-11-10 17:26 | XMS REPORT | Continuity of Care Document ---
Author Name Unknown Address [address] [facility] [place] [address] [facility] thconnect Address [address] [facility] [place] [address] Care Team Providers Care Flower Grader Name Role Phone Pcp, Patient Does Not Have A Primary Care Physic juliocesar Marcella Gay NP Attending Clinician Jenae Pierce RN Attending Clinician MARCELLA Franco Attending Clinician Ana Luisa carrasco Doctor Unassigned, [place] Attending Clinician U Jayne Phillips MA Attending Clinician Zenon armstrong Only, Web Test Attending Clinician Unavailable Payers Payer Name Policy Type Policy Number Effective Date Expirati on Date Source Problems Condition Name Condition Details Condition Category Status Onset Date Resolution Date Last Treatment Date Treating Clinician Comments Source Vaginal discharge Vaginal discharge Disease Active 01-24 00:00: 00 [facility] Pain pelvic Pain pelvic Disease Active 01-24 00:00: 00 [facility] Breast discharge Breast discharge Disease Active 2016-10 00:00: 00 [facility] Routine gynecologi estella examinatio n Routine gynecologi estella examinatio n Disease Active 2015-10 00:00: 00 [facility] Fibroadeno ma Fibroadeno ma Disease Active 01-31 00:00: 00 Overview: Formattin g of this note might be different from the original. Medical records from [facility] on 01/15/201 4. Mammogram on left breast. Impressio n. 1.1cm hyyopecho ic structure within the upper-out er left breast most likely represent ing a fibroaden traci. F/U [facility] in 6 months. Benign appearing right breast. BIRADS - category II. Probably benign. [facility] BMI 38.0-38.9, adult BMI 38.0-38.9, adult Disease Active 01-31 00:00: 00 Overview: Formattin g of this note might be different from the original. 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 [facility] Allergies, Adverse Reactions, Alerts Allergy Name Allergy Type Status Severity Reaction(s) Onset Date Inactive Date Treating Clinician Comments Source NO KNOWN ALLERGIE S Drug Class Active [facility] Social History Social Habit Start Date Stop Date Quantity Comments Source History SDOH Alcohol Frequency [facility] History SDOH Alcohol Std Drinks [facility] History SDOH Alcohol Binge [facility] of Social function 2023-01-24 00:00:00 2023-01-24 00:00:00 [facility] Exposure to SARS-CoV-2 (event) 2022-12-21 00:00:00 2022-12-31 14:59:00 Not sure [facility] Alcohol intake 2018-08-25 00:00:00 2018-08-25 00:00:00 0 /d [facility] Cigarettes smoked current (pack per day) - Reported 2017-09-20 00:00:00 2017-09-20 00:00:00 [facility] Tobacco use and exposure 2017-09-20 00:00:00 2017-09-20 00:00:00 Smokeless tobacco non-user [facility] Tobacco Comment 2017-09-20 00:00:00 2017-09-20 00:00:00 2-3 cigarretes/day [facility] History of tobacco use 2006-09-20 00:00:00 2015-03-11 00:00:00 Cigarette Smoker [facility] Alcohol Comment 2014-01-31 00:00:00 2014-01-31 00:00:00 weekends [facility] Sex Assigned At 1990 00:00:00 1990 00:00:00 [facility] Smoking Status Start Date Stop Date Source Ex-smoker 2017-09-20 00:00:00 2017-09-20 00:00:00 U [facility] Medications Ordered Medication Name Filled Medication Name Start Date Stop Date Current Medication? Ordering Clinician Indication Dosage Frequency Signature (SIG) Comments Components Source norethindro ne (ORTHO MICRONOR) 0.35 mg tablet 24 00:00: 00 Yes [id number] .35mg Take 1 tablet by mouth in the morning. [facility] metroNIDAZO LE 500 mg tablet 12-31 00:00: 00 01-08 04:59 :00 No [id number] 500mg Take 1 tablet by mouth every 12 (twelve) hours for 7 days. [facility] metroNIDAZO LE 500 mg tablet 12-31 00:00: 00 01-08 04:59 :00 No [id number] 500mg Take 1 tablet by mouth every 12 (twelve) hours for 7 days. [facility] terconazole 80 mg vaginal suppository 3 00:00: 00 01-04 04:59 :00 No [id number] 80mg Insert 1 Suppositor y into vagina at bedtime for 3 days. [facility] terconazole 80 mg vaginal suppository 323 00:00: 00 01-04 04:59 :00 No [id number] 80mg Insert 1 Suppositor y into vagina at bedtime for 3 days. [facility] No known medications 6 11:16: 56 No [facility] Immunizations Ordered Immunization Name Filled Immunization Name Date Status Comments Source SARS-COV-2 COVID-19 PFIZER MARY-SUCROSE VACCINE (NEGRON TOP) 2022-04-17 00:00:00 Completed [facility] SARS-COV-2 COVID-19 PFIZER MARY-SUCROSE VACCINE (NEGRON TOP) 2022-04-17 00:00:00 Completed [facility] SARS-COV-2 COVID-19 PFIZER MARY-SUCROSE VACCINE (NEGRON TOP) 2022-04-17 00:00:00 Completed [facility] SARS-COV-2 COVID-19 PFIZER MARY-SUCROSE VACCINE (NEGRON TOP) 2022-04-17 00:00:00 Completed [facility] SARS-COV-2 COVID-19 PFIZER MARY-SUCROSE VACCINE (NEGRON TOP) 2022-04-17 00:00:00 Completed [facility] SARS-COV-2 COVID-19 PFIZER MARY-SUCROSE VACCINE (NEGRON TOP) 2022-04-17 00:00:00 Completed [facility] SARS-COV-2 COVID-19 PFIZER MARY-SUCROSE VACCINE (NEGRON TOP) 2022-03-27 00:00:00 Completed [facility] SARS-COV-2 COVID-19 PFIZER MARY-SUCROSE VACCINE (NEGRON TOP) 2022-03-27 00:00:00 Completed [facility] SARS-COV-2 COVID-19 PFIZER MARY-SUCROSE VACCINE (NEGRON TOP) 2022-03-27 00:00:00 Completed [facility] SARS-COV-2 COVID-19 PFIZER MARY-SUCROSE VACCINE (NEGRON TOP) 2022-03-27 00:00:00 Completed [facility] SARS-COV-2 COVID-19 PFIZER MARY-SUCROSE VACCINE (NEGRON TOP) 2022-03-27 00:00:00 Completed [facility] SARS-COV-2 COVID-19 PFIZER MARY-SUCROSE VACCINE (NEGRON TOP) 2022-03-27 00:00:00 Completed [facility] Varicella (varivax)(chicken pox) 2017-12-17 00:00:00 Completed [facility] Varicella (varivax)(chicken pox) 2017-12-17 00:00:00 Completed [facility] Varicella (varivax)(chicken pox) 2017-12-17 00:00:00 Completed [facility] Varicella (varivax)(chicken pox) 2017-12-17 00:00:00 Completed [facility] Varicella (varivax)(chicken pox) 2017-12-17 00:00:00 Completed [facility] Varicella (varivax)(chicken pox) 2017-12-17 00:00:00 Completed [facility] HPV9 2016-08-21 00:00:00 Completed [facility] TDAP 2016-08-21 00:00:00 Completed [facility] HPV9 2016-08-21 00:00:00 Completed [facility] TDAP 2016-08-21 00:00:00 Completed [facility] HPV9 2016-08-21 00:00:00 Completed [facility] TDAP 2016-08-21 00:00:00 Completed [facility] HPV9 2016-08-21 00:00:00 Completed [facility] TDAP 2016-08-21 00:00:00 Completed [facility] HPV9 2016-08-21 00:00:00 Completed [facility] TDAP 2016-08-21 00:00:00 Completed [facility] HPV9 2016-08-21 00:00:00 Completed [facility] TDAP 2016-08-21 00:00:00 Completed [facility] HPV9 2016-08-21 00:00:00 Completed [facility] TDAP 2016-08-21 00:00:00 Completed [facility] MMR 2015-09-26 00:00:00 Completed [facility] TDAP 2015-09-26 00:00:00 Completed [facility] Varicella (varivax)(chicken pox) 2015-09-26 00:00:00 Completed [facility] MMR 2015-09-26 00:00:00 Completed [facility] TDAP 2015-09-26 00:00:00 Completed [facility] Varicella (varivax)(chicken pox) 2015-09-26 00:00:00 Completed [facility] MMR 2015-09-26 00:00:00 Completed [facility] TDAP 2015-09-26 00:00:00 Completed [facility] Varicella (varivax)(chicken pox) 2015-09-26 00:00:00 Completed [facility] MMR 2015-09-26 00:00:00 Completed [facility] TDAP 2015-09-26 00:00:00 Completed [facility] Varicella (varivax)(chicken pox) 2015-09-26 00:00:00 Completed [facility] MMR 2015-09-26 00:00:00 Completed [facility] TDAP 2015-09-26 00:00:00 Completed [facility] Varicella (varivax)(chicken pox) 2015-09-26 00:00:00 Completed [facility] MMR 2015-09-26 00:00:00 Completed [facility] TDAP 2015-09-26 00:00:00 Completed [facility] Varicella (varivax)(chicken pox) 2015-09-26 00:00:00 Completed [facility] Hep B, Unspecified Formulation 2015-01-14 00:00:00 Completed [facility] Hep B, Unspecified Formulation 2015-01-14 00:00:00 Completed [facility] Hep B, Unspecified Formulation 2015-01-14 00:00:00 Completed [facility] Hep B, Unspecified Formulation 2015-01-14 00:00:00 Completed [facility] Hep B, Unspecified Formulation 2015-01-14 00:00:00 Completed [facility] Hep B, Unspecified Formulation 2015-01-14 00:00:00 Completed [facility] Hep B, Unspecified Formulation 2014-12-11 00:00:00 Completed [facility] Hep B, Unspecified Formulation 2014-12-11 00:00:00 Completed [facility] Hep B, Unspecified Formulation 2014-12-11 00:00:00 Completed [facility] Hep B, Unspecified Formulation 2014-12-11 00:00:00 Completed [facility] Hep B, Unspecified Formulation 2014-12-11 00:00:00 Completed [facility] Hep B, Unspecified Formulation 2014-12-11 00:00:00 Completed [facility] TD, NOS 2005-01-31 00:00:00 Completed [facility] TD, NOS 2005-01-31 00:00:00 Completed [facility] TD, NOS 2005-01-31 00:00:00 Completed [facility] Td 2005-01-31 00:00:00 Completed [facility] TD, NOS 2005-01-31 00:00:00 Completed [facility] TD, NOS 2005-01-31 00:00:00 Completed [facility] TD, NOS 2005-01-31 00:00:00 Completed [facility] Hep B, Unspecified Formulation 2003-01-10 00:00:00 Completed [facility] Hep B, Unspecified Formulation 2003-01-10 00:00:00 Completed [facility] Hep B, Unspecified Formulation 2003-01-10 00:00:00 Completed [facility] Hep B, Unspecified Formulation 2003-01-10 00:00:00 Completed [facility] Hep B, Unspecified Formulation 2003-01-10 00:00:00 Completed [facility] Hep B, Unspecified Formulation 2003-01-10 00:00:00 Completed [facility] Hep B, Unspecified Formulation 2002-08-11 00:00:00 Completed [facility] Hep B, Unspecified Formulation 2002-08-11 00:00:00 Completed [facility] Hep B, Unspecified Formulation 2002-08-11 00:00:00 Completed [facility] Hep B, Unspecified Formulation 2002-08-11 00:00:00 Completed [facility] Hep B, Unspecified Formulation 2002-08-11 00:00:00 Completed [facility] Hep B, Unspecified Formulation 2002-08-11 00:00:00 Completed [facility] MMR 2002-03-01 00:00:00 Completed [facility] Hep B, Unspecified Formulation 2002-03-01 00:00:00 Completed [facility] MMR 2002-03-01 00:00:00 Completed [facility] Hep B, Unspecified Formulation 2002-03-01 00:00:00 Completed [facility] MMR 2002-03-01 00:00:00 Completed [facility] Hep B, Unspecified Formulation 2002-03-01 00:00:00 Completed [facility] MMR 2002-03-01 00:00:00 Completed [facility] Hep B, Unspecified Formulation 2002-03-01 00:00:00 Completed [facility] MMR 2002-03-01 00:00:00 Completed [facility] Hep B, Unspecified Formulation 2002-03-01 00:00:00 Completed [facility] MMR 2002-03-01 00:00:00 Completed [facility] Hep B, Unspecified Formulation 2002-03-01 00:00:00 Completed [facility] TD, NOS Unknown Completed [facility] HPV9 Unknown Completed [facility] TDAP Unknown Completed [facility] SARS-COV-2 COVID-19 PFIZER MARY-SUCROSE VACCINE (NEGRON TOP) Unknown Completed [facility] SARS-COV-2 COVID-19 PFIZER MARY-SUCROSE VACCINE (NEGRON TOP) Unknown Completed [facility] Hep B, Unspecified Formulation Unknown Completed [facility] Hep B, Unspecified Formulation Unknown Completed [facility] Hep B, Unspecified Formulation Unknown Completed [facility] Hep B, Unspecified Formulation Unknown Completed [facility] Hep B, Unspecified Formulation Unknown Completed [facility] MMR Unknown Completed [facility] MMR Unknown Completed [facility] TDAP Unknown Completed [facility] Varicella (varivax)(chicken pox) Unknown Completed [facility] Varicella (varivax)(chicken pox) Unknown Completed [facility] TD, NOS Unknown Completed [facility] HPV9 Unknown Completed [facility] TDAP Unknown Completed [facility] Hep B, Unspecified Formulation Unknown Completed [facility] Hep B, Unspecified Formulation Unknown Completed [facility] Hep B, Unspecified Formulation Unknown Completed [facility] Hep B, Unspecified Formulation Unknown Completed [facility] Hep B, Unspecified Formulation Unknown Completed [facility] MMR Unknown Completed [facility] MMR Unknown Completed [facility] TDAP Unknown Completed [facility] Varicella (varivax)(chicken pox) Unknown Completed [facility] Varicella (varivax)(chicken pox) Unknown Completed [facility] Vital Signs Vital Name Observation Time Observation Value Comments S ource Systolic blood pressure 2022-12-31 20:18:00 119 mm[Hg] [facility] Diastolic blood pressure 2022-12-31 20:18:00 73 mm[Hg] [facility] Heart rate 2022-12-31 20:18:00 88 /min [facility] Body temperature 2022-12-31 20:18:00 36.56 Marixa [facility] Respiratory rate 2022-12-31 20:18:00 16 /min [facility] Body height 2022-12-31 20:18:00 157.5 cm [facility] Body weight 2022-12-31 20:18:00 94.348 kg [facility] BMI 2022-12-31 20:18:00 38.04 kg/m2 [facility] Procedures Procedure Date / Time Performed Performing Clinicia n Source ASSIGNMENT OF BENEFITS 2022-12-31 20:00:41 Docto r Unassigned, [place] [facility] EXTERNAL LAB CHLAMYDIA 2019-01-06 13:00:00 Docto r Unassigned, [place] [facility] EXTERNAL PAP SMEAR 2019-01-06 13:00:00 Doctor Un assigned, [place] [facility] Encounters Start Date/Time End Date/Time Encounter Type Admission Type Attending Clinicians Care Facility Care Department Encounter ID Source 2023-03-03 00:00:00 2023-03-03 00:00:00 Telephone Marcella Gay [facility] [id number] [id number] [id number] [id number] [facility] 2023-01-29 00:00:00 2023-01-29 00:00:00 Telephone Marcella Gay [facility] [id number] [id number] 4.2.7.2.686 [id number] [facility] 2023-01-12 00:00:00 2023-01-12 00:00:00 Telephone Jenae Pierce [facility] [id number] 350.1.13.10 4.2.7.2.686 [id number] [facility] 2022-12-31 15:30:00 2022-12-31 15:59:23 Outpatient R MARCELLA GAY CHERYAL [facility] [id number] [facility] 2022-12-31 15:30:00 2022-12-31 15:59:23 Office Visit Marcella Gay [facility] [id number] [id number] 4.2.7.2.686 [id number] [facility] 2022-12-31 00:00:00 2022-12-31 00:00:00 Orders Only Doctor Unassigned, [place] [facility] [id number] [id number] 4.2.7.2.686 [id number] [facility] 2022-12-22 14:30:00 2022-12-22 14:30:00 Outpatient R MARCELLA GAY CHERYAL [facility] [id number] [facility] 2022-12-21 00:00:00 2022-12-21 00:00:00 Patient Secure Msg Doctor Unassigned, [place] [facility] [id number] 350.1.13.10 4.2.7.2.686 [id number] [facility] 2021-10-23 00:00:00 2021-10-23 00:00:00 Pre Visit Outreach Jayne Kennedy 1.20.114 [id number] 4.2.7.2.686 [id number] [facility] 2020-04-24 00:00:00 2020-04-24 00:00:00 Patient Secure Msg Doctor Unassigned, [place] [facility] [id number] [id number] [id number] [id number] [facility] 2020-04-22 16:11:19 2020-04-22 16:26:19 Laboratory Only Only, Web Test [facility] [id number] [id number] [id number] [id number] 2020-04-22 16:15:00 2020-04-22 16:15:00 Outpatient R [facility] [id number] [facility] Results Test Description Test Time Test Comments Results Result Co mments Source [facility]
[2023-11-10 18:02] LABS: Absolute Lymphocytes (CBC) 2.7 K/uL (0.7-4.9); Lymphocytes % 27.9 % (15.3-44.8); MCV 84.7 fL (80-100); MPV 7.5 fL (7.6-11.3); Platelets 354 thou/uL (152-406); RBC Red Blood Cell Count 4.26 M/uL (3.86-4.86)
[2023-11-10 18:15] LABS: ALT/SGPT 28 U/L (13-56); AST/SGOT 7 U/L (15-37); Albumin 3.5 g/dL (3.4-5.0); Alkaline Phosphatase 74 U/L (45-117); BUN Blood Urea Nitrogen 10 mg/dL (7-18); Bicarbonate 27 mEq/L (21-32); Bilirubin Total 0.2 mg/dL (0.2-1.0); Glomerular Filtration Rate 118 ml/min (=/>90); Glucose Level 93 mg/dL (74-106); Magnesium 2.2 mg/dL (1.6-2.4); Potassium 3.6 mEq/L (3.5-5.1); Protein, Total 7.7 g/dL (6.4-8.2); Sodium Level 135 mEq/L (136-145)
--- NOTE | 2023-11-10 18:18 | RAD REPORT ---
EXAM DESCRIPTION: Michelle Single View11/10/2023 5:55 pm CLINICAL HISTORY: Chest pain COMPARISON: 2015 FINDINGS: The lungs appear clear of acute infiltrate. The heart is normal size IMPRESSION: No acute abnormalities displayed
[2023-11-10 18:27] LABS: Bilirubin Direct < 0.1 mg/dL (0-0.2); Bilirubin Indirect, Calculated ND mg/dL (0.2-0.8); Troponin High Sensitivity < 3.0 pg/mL (<58.9)
--- NOTE | 2023-11-10 19:16 | ER ---
Nurse's Notes [facility] Name: Linsey Lauren Age: 33 yrs Sex: Female : 1990 Arrival Date: 11/10/2023 Time: 17:22 Bed 5 Private MD: Diagnosis: Chest pain, unspecified Presentation: 11/10 17:26 Chief complaint: Patient states: CP for 3 days. Coronavirus screen: Client denies kc6 travel out of the [place] in the last 14 days. At this time, the client does not indicate any symptoms associated with coronavirus-19. Ebola Screen: Patient denies travel to an Ebola-affected area in the 21 days before illness onset. Initial Sepsis Screen: Does the patient meet any 2 criteria? No. Patient's initial sepsis screen is negative. Does the patient have a suspected source of infection? No. Patient's initial sepsis screen is negative. Risk Assessment: Do you want to hurt yourself or someone else? Patient reports no desire to harm self or others. Onset of symptoms was November 08, 2023. 17:26 Acuity: HANH 3 kc6 17:26 Method Of Arrival: Ambulatory [facility] Triage Assessment: 17:29 General: Appears uncomfortable, Behavior is calm, cooperative, appropriate for age. ap3 Pain: Complains of pain in chest. Cardiovascular: Reports chest pain, shortness of breath, Chest pain is described as mild. Historical: - Allergies: 17:26 Morphine (Upset stomach); kc6 - PMHx: 17:26 Fibromyalgia; kc6 - PSHx: 17:26 Appendectomy; Cholecystectomy; hernia; left breast; kc6 - Immunization history:: Adult Immunizations up to date. - Social history:: Smoking status: Patient denies any tobacco usage or history of. Screenin:52 [facility] ED Fall Risk Assessment (Adult) History of falling in the last 3 months, kc6 including since admission No falls in past 3 months (0 pts) Confusion or Disorientation No (0 pts) Intoxicated or Sedated No (0 pts) Impaired Gait No (0 pts) Mobility Assist Device Used No (0 pt) Altered Elimination No (0 pt) Score/Fall Risk Level 0 - 2 = Low Risk. Abuse screen: Denies threats or abuse. Denies injuries from another. Nutritional screening: No deficits noted. Tuberculosis screening: No symptoms or risk factors identified. Assessment: 17:29 Reassessment: please see triage assessment. kc6 18:29 Reassessment: Patient appears in no apparent distress at this time. No changes from kc6 previously documented assessment. Patient and/or family updated on plan of care and expected duration. Pain level reassessed. Patient is alert, oriented x 3, equal unlabored respirations, skin warm/dry/pink. Vital Signs: 17:26 BP 143 / 107; Pulse 78; Resp 18; Temp 97.8; Pulse Ox 100% ; Pain 6/10; ap3 18:55 BP 122 / 77; Pulse 77; Resp 16 S; Pulse Ox 99% on R/A; kc6 19:29 BP 107 / 82; Pulse 76; Resp 17; Temp 98; Pulse Ox 99% on R/A; rv 17:26 Pain Scale: Adult ap3 Bartley Coma Score: 19:30 Eye Response: spontaneous(4). Motor Response: obeys commands(6). Verbal Response: rv oriented(5). Total: 15. ED Course: 17:22 Patient arrived in ED. im 17:23 Myah Ellsworth FNP-C [facility]. kb 17:23 Nahum Slaughter MD is Attending Physician. kb 17:25 Arm band placed on Patient placed in an exam room, on a stretcher. kc6 17:27 Triage completed. kc6 17:36 Tash Neumann, RN is Primary Nurse. kc6 17:52 Patient has correct armband on for positive identification. Bed in low position. Call kc6 light in reach. Side rails up X 1. Client placed on continuous cardiac and pulse oximetry monitoring. NIBP monitoring applied. playground monitor on. 17:52 Inserted saline lock: 20 gauge in right antecubital area, using aseptic technique. kc6 Blood collected. Patient maintains SpO2 saturation greater than 95% on room air. 17:57 XRAY Chest (1 view) In Process Unspecified. EDMS 19:27 No provider procedures requiring assistance completed. IV discontinued, intact, rv bleeding controlled, No redness/swelling at site. Pressure dressing applied. Administered Medications: 17:56 Drug: Ketorolac IVP 15 mg IVP once Route: IVP; Site: right antecubital; kc6 19:31 Follow up: Response: No adverse reaction rv 17:56 Drug: Famotidine IVP 20 mg IVP once; dilute with 10 mL 0.9% NaCl; give over 2 minutes kc6 Route: IVP; Site: right antecubital; 19:31 Follow up: Response: No adverse reaction rv Medication: 19:28 VIS not applicable for this client. rv Outcome: 19:15 Discharge ordered by MD. medina 19:28 Discharged to home ambulatory, rv 19:28 Condition: good 19:28 Discharge instructions given to patient, family, Instructed on discharge instructions, follow up and referral plans. Demonstrated understanding of instructions, follow-up care, 19:30 Patient left the ED. rv Signatures: Dispatcher [employer] EDMS Myah Ellsworth, ANALILIA PINEDOP-Julia Warren RN RN ap3 Robbi Lin RN RN Tash Lew RN RN kc6 Iman Tidwell Corrections: (The following items were deleted from the chart) 17:29 17:26 BP 143 / 107; Pulse 78bpm; Resp 18bpm; Pulse Ox 100%; kc6 ap3
--- NOTE | 2023-11-10 19:16 | EDPHYS ---
Physician Documentation [facility] Name: Linsey Lauren Age: 33 yrs Sex: Female : 1990 Arrival Date: 11/10/2023 Time: 17:22 Bed 5 Private MD: ED Physician Nahum Slaughter HPI: 11/10 21:55 This 33 yrs old Female presents to ER via Ambulatory with complaints of Chest kb Pain. 21:55 Patient is a 33-year-old female who presents for chest pain to the center of the chest kb that is worse with movement, breathing and palpation. States pain started 3 days ago and is not getting any better. Denies cough, congestion, palpitations, shortness of breath, fever. Historical: - Allergies: 17:26 Morphine (Upset stomach); kc6 - PMHx: 17:26 Fibromyalgia; kc6 - PSHx: 17:26 Appendectomy; Cholecystectomy; hernia; left breast; kc6 - Immunization history:: Adult Immunizations up to date. - Social history:: Smoking status: Patient denies any tobacco usage or history of. ROS: 21:50 Constitutional: Negative for fever, chills, and weight loss, kb 21:50 Cardiovascular: Positive for chest pain, 21:50 All other systems are negative, Exam: 21:50 Constitutional: This is a well developed, well nourished patient who is awake, alert, kb and in no acute distress. Head/Face: Normocephalic, atraumatic. ENT: Moist Mucous membranes Cardiovascular: Regular rate Respiratory: Respirations even and unlabored. No increased work of breathing. Talking in full sentences Abdomen/GI: Soft, non-tender. No distention Skin: Warm, dry with normal turgor. Normal color. MS/ Extremity: Pulses equal, no cyanosis. Neurovascular intact. Full, normal range of motion. Neuro: Awake and alert, GCS 15, oriented to person, place, time, and situation. Moves all extremities. Normal gait. 21:50 Chest/axilla: Inspection: normal, Palpation: tenderness, that is moderate, of the mid-sternal area, Vital Signs: 17:26 BP 143 / 107; Pulse 78; Resp 18; Temp 97.8; Pulse Ox 100% ; Pain 6/10; ap3 18:55 BP 122 / 77; Pulse 77; Resp 16 S; Pulse Ox 99% on R/A; kc6 19:29 BP 107 / 82; Pulse 76; Resp 17; Temp 98; Pulse Ox 99% on R/A; rv 17:26 Pain Scale: Adult ap3 [place] Coma Score: 19:30 Eye Response: spontaneous(4). Motor Response: obeys commands(6). Verbal Response: rv oriented(5). Total: 15. MDM: 17:23 Patient medically screened. kb 21:52 Data reviewed: vital signs, nurses notes. kb 21:54 Differential diagnosis: abnormal EKG, acute myocardial infarction, coronary artery kb disease chest wall pain. Counseling: I had a detailed discussion with the patient and/or guardian regarding the historical points, exam findings, and any diagnostic results supporting the discharge/admit diagnosis, lab results, radiology results, the need for outpatient follow up, a family practitioner, to return to the emergency department if symptoms worsen or persist or if there are any questions or concerns that arise at home. Response to treatment: the patient's symptoms have markedly improved after treatment. Admission orders: after a detailed discussion of the patient's condition and case, the admit orders are written by me. 11/10 17:28 Order name: Basic Metabolic Panel; Complete Time: 18:35 kb 11/10 17:28 Order name: CBC with Diff; Complete Time: 18:14 kb 11/10 17:28 Order name: D-Dimer; Complete Time: 18:05 kb 11/10 17:28 Order name: LFT's; Complete Time: 18:35 kb 11/10 17:28 Order name: Magnesium; Complete Time: 18:35 kb 11/10 17:28 Order name: Troponin HS; Complete Time: 18:35 kb 11/10 17:28 Order name: XRAY Chest (1 view); Complete Time: 18:22 kb 11/10 17:28 Order name: EKG; Complete Time: 17:28 kb 11/10 17:28 Order name: Cardiac monitoring; Complete Time: 17:51 kb 11/10 17:28 Order name: EKG - Nurse/Tech; Complete Time: 17:52 kb 11/10 17:28 Order name: IV Saline Lock; Complete Time: 17:52 kb 11/10 17:28 Order name: Labs collected and sent; Complete Time: 17:52 kb 11/10 17:28 Order name: O2 Per Protocol; Complete Time: 17:52 kb 11/10 17:28 Order name: O2 Sat Monitoring; Complete Time: 17:52 kb Administered Medications: 17:56 Drug: Ketorolac IVP 15 mg IVP once Route: IVP; Site: right antecubital; kc6 19:31 Follow up: Response: No adverse reaction rv 17:56 Drug: Famotidine IVP 20 mg IVP once; dilute with 10 mL 0.9% NaCl; give over 2 minutes kc6 Route: IVP; Site: right antecubital; 19:31 Follow up: Response: No adverse reaction rv Disposition Summary: 11/10/23 19:15 Discharge Ordered Notes: Location: Home kb Condition: Stable kb Diagnosis - Chest pain, unspecified kb Followup: kb - With: Emergency Department - When: As needed - Reason: Worsening of condition Followup: kb - With: Private Physician - When: 2 - 3 days - Reason: Recheck today's complaints, Continuance of care, Re-evaluation by your physician Discharge Instructions: - Discharge Summary Sheet kb - Nonspecific Chest Pain, Adult, [id number] kb Forms: - Medication Reconciliation Form kb - Thank You Letter kb - Antibiotic Education kb - Prescription Opioid Use kb - Patient Portal Instructions kb - Leadership Thank You Letter kb Signatures: Dispatcher [employer] Myah Rios, DAPHNE[employer] AUTOMOTIVE ELECTRICAL FITTER-Tash Azar RN RN kc6 Robbi Lin RN rv Corrections: (The following items were deleted from the chart) 21:55 21:55 Patient is a 33-year-old female who presents for chest pain to the center of the chest that is worse with movement, breathing and palpation.. kb
[2023-11-10 21:51] VITALS: BP 107/82; TEMP 98; O2SAT 99
--- NOTE | 2023-11-11 13:22 | EKG ---
Test Date: 2023-11-10 Test Time: 17:43:45 Gear Lapping Machine Operator: KATHRYN MEASUREMENT RESULTS: Intervals: Rate: 63 OK: 138 QRSD: 92 QT: 406 QTc: 415 [place]: P: 58 OK: 138 QRS: 51 T: 36 INTERPRETIVE STATEMENTS: Normal sinus rhythm Normal ECG Compared to ECG 12/30/2003 13:06:00 ST (T wave) deviation no longer present Electronically Signed On 11-11-23 13:21:36 SUPERVISOR OPENING [employer] PICKING by Vargas Garcia
== END ==
LOC: ER 17:22
DX: R07.9 Chest pain, unspecified (principal); Z88.5 Allergy status to narcotic agent
CPT/HCPCS: 36415; 71045; 80048; 80076; 83735; 84484; 85025; 85379; 93005